=== PATIENT | female | born 1970 | race Caucasian/White ===

== ENCOUNTER 2017-11-04 16:50 | Emergency (ER) | payer MEDICARE, MEDICAID ==
--- NOTE | 2017-11-04 17:29 | EDM.PDOC ---
ED HPI GENERAL MEDICAL PROBLEM - General Chief Complaint: Lower Extremity Injury/Pain Stated Complaint: RT LEG PAIN Time Seen by Provider: 11/04/17 17:05 Source of Information: Reports: Patient, Family History Limitations: Reports: No Limitations - History of Present Illness INITIAL COMMENTS - FREE TEXT/NARRATIVE: clay comes into [facility] ED with reported concerns for swelling in the R lower leg and possible drainage from a surgical wound. She had ortho day surgery last week to remove bone fragments from the R lower leg. She denies visual confirmation of drainage or swelling, as the leg is wrapped in a posterior splint with Robt Wilder type bulky dressing. The ortho nurse suggested an ED visit. - Related Data Allergies Allergy/AdvReac Type Severity Reaction Status Date / Time aspirin Allergy Hives Verified 08/06/13 12:52 codeine Allergy Hives Verified 03/02/13 11:03 ibuprofen Allergy Nausea and Verified 03/02/13 11:03 Vomiting levofloxacin [From Levaquin] Allergy Airway Verified 03/02/13 11:03 Tightness Sulfa (Sulfonamide Allergy Airway Verified 03/02/13 11:03 Antibiotics) Tightness Home Meds: Home Meds Carboxymethylcellulose Sodium [Refresh Tears 0.5% Ophth Soln] 15 ml OP 03/02/13 [History] Cyclobenzaprine [Flexeril] 10 mg PO TID PRN 03/02/13 [History] FLUoxetine [PROzac] 20 mg PO DAILY 03/02/13 [History] Fesoterodine Fumarate [Toviaz] 8 mg PO DAILY 03/02/13 [History] Fluticasone Propionate [Flovent HFA 44 MCG] 44 mcg .XX 03/02/13 [History] Ranitidine [Zantac] 150 mg PO BID PRN 03/02/13 [History] Rizatriptan [Maxalt STAPLE CUTTER] 10 mg PO ASDIRECTED PRN 03/02/13 [History] Simvastatin [Zocor] 20 mg PO BEDTIME 03/02/13 [History] Topiramate [Topamax] 100 mg PO BID 03/02/13 [History] lamoTRIgine [Lamotrigine] 100 mg PO BID 03/02/13 [History] metFORMIN [metFORMIN XR] 500 mg PO BIDM 03/02/13 [History] traMADol HCl [Tramadol HCl] 50 mg PO Q8HR PRN 03/02/13 [History] Potassium Chloride [Klor-Con M20] 20 meq PO BID #20 tab.er 04/10/13 [Rx] Review of Systems - Review of Systems Review Of Systems: ROS reveals no pertinent complaints other than HPI. ED EXAM, GENERAL - Physical Exam Exam: See Below Exam Limited By: No Limitations General Appearance: Alert, WD/WN, No Apparent Distress, Anxious, Obese Head: Normocephalic Neck: Normal Inspection Respiratory/Chest: Lungs Clear Cardiovascular: Regular Rate, Rhythm GI/Abdominal: Normal Bowel Sounds, Non-Tender, No Organomegaly, No Distention, No Mass (Female) Exam: Deferred Rectal (Female) Exam: Deferred Back Exam: Normal Inspection Extremities: Normal Range of Motion, No Pedal Edema, Normal Capillary Refill, Leg Pain (with dressing removed, there is a 5 cm stapled wound along the medial aspect of the calf without signs of drainage, erythema or dehisence; mild calf tenderness, Homans sign neg; ) Neurological: Alert, Oriented, CN II-XII Intact, Normal Cognition, No Motor/ Sensory Deficits Psychiatric: Normal Affect, Anxious Skin Exam: Warm, Dry, Intact, Normal Color, No Rash Lymphatic: No Adenopathy Course - Vital Signs Text/Narrative:: Following inspection of R lower leg, clean dressings were reapplied uneventfully. Departure - Departure Time of Disposition: 17:30 Disposition: Home, Self-Care 01 Condition: Good Clinical Impression: Right leg swelling - Discharge Information *PRESCRIPTION DRUG MONITORING PROGRAM REVIEWED*: Not Applicable *COPY OF PRESCRIPTION DRUG MONITORING REPORT IN PATIENT LOIS: Not Applicable Referrals: Vicki Mirza NP [Primary Care Provider] - - Problem List & Annotations (1) Right leg swelling SNOMED Code(s): 009556035 Code(s): M79.89 - OTHER SPECIFIED SOFT TISSUE DISORDERS Status: Acute Annotation/Comment:: Mild post op swelling of R lower leg, without signs of compromise or thrombosis. The wound is clean. Continue routine out pt managment. - Problem List Review Problem List Initiated/Reviewed/Updated: Yes - Assessment/Plan Plan: Follow up with Ortho on November 14.
[2017-11-04 19:39] VITALS: BP 130/101
== END 2017-11-04 17:45 | disposition home or self-care (01) ==
LOC: FB.ED 16:50
DX: M79.89 Other specified soft tissue disorders (principal); Z88.5 Allergy status to narcotic agent; Z88.6 Allergy status to analgesic agent; Z88.2 Allergy status to sulfonamides; Z79.899 Other long term (current) drug therapy
CPT/HCPCS: 99282

== ENCOUNTER 2018-06-12 18:27 | Emergency (ER) | payer MEDICARE, MEDICAID ==
[2018-06-12] MEDS ORDERED: methylPREDNISolone Sodium Succinate 125 MG/2 ML SDV IM ONE (19:12)
--- NOTE | 2018-06-12 19:18 | EDM.PDOC ---
ED HPI GENERAL MEDICAL PROBLEM - General Chief Complaint: ENT Problem Stated Complaint: L EYE RED AND IRRITATED Time Seen by Provider: 06/12/18 19:00 Source of Information: Reports: Patient History Limitations: Reports: No Limitations - History of Present Illness INITIAL COMMENTS - FREE TEXT/NARRATIVE: c/o itchy and eye discomfort x 2y inc'd pain today, leasing associate out of [place], PCP did not have an apt saw leasing associate 2w ago who rx'ed saline eye drops pt with "many allergies" and "asthma" not allergic to cats, no cats at home, has a dog visit once a month has discomfort and eye d/c, more on L, however, no d/c or swell now has not used other eye drops in past did not identify allergens when asked, says her allergies are worse in winter use neb qAM and a prn HFA, no maintenance HFA left eye Pain Score (Numeric/FACES): 8 - Related Data Allergies Allergy/AdvReac Type Severity Reaction Status Date / Time amoxicillin Allergy Other Verified 06/12/18 18:41 aspirin Allergy Hives Verified 06/12/18 18:41 codeine Allergy Hives Verified 06/12/18 18:41 ibuprofen Allergy Nausea and Verified 06/12/18 18:41 Vomiting levofloxacin [From Levaquin] Allergy Airway Verified 06/12/18 18:41 Tightness Penicillins Allergy Other Verified 06/12/18 18:41 Sulfa (Sulfonamide Allergy Airway Verified 06/12/18 18:41 Antibiotics) Tightness Home Meds: Home Meds Carboxymethylcellulose Sodium [Refresh Tears 0.5% Ophth Soln] 1 drop EYEBOTH BID PRN 03/02/13 [History] Cyclobenzaprine [Flexeril] 10 mg PO TID PRN 03/02/13 [History] Fluticasone Propionate [Flovent HFA 44 MCG] 1 puff INH TID PRN 03/02/13 [History ] Ranitidine [Zantac] 150 mg PO BID PRN 03/02/13 [History] Rizatriptan [Maxalt FAMILY DENTIST] 10 mg PO ASDIRECTED PRN 03/02/13 [History] Simvastatin [Zocor] 20 mg PO BEDTIME 03/02/13 [History] lamoTRIgine [Lamotrigine] 100 mg PO BEDTIME 03/02/13 [History] traMADol HCl [Tramadol HCl] 50 mg PO Q8HR PRN 03/02/13 [History] FLUoxetine HCl [Prozac] 20 mg PO BEDTIME 11/04/17 [History] Ketorolac [Acular LS 0.4% Ophth Soln] 1 drop OP TID #1 bottle 06/12/18 [Rx] Past Medical History Neurological History: Reports: Seizure Psychiatric History: Reports: Bipolar Endocrine/Metabolic History: Reports: Other (See Below) Other Endocrine/Metabolic History: States she is borderline diabetic. - Past Surgical History Musculoskeletal Surgical History: Reports: Other (See Below) Other Musculoskeletal Surgeries/Procedures:: Hx surgery to left foot and right calf. Social & Family History - Family History Family Medical History: Noncontributory - Tobacco Use Smoking Status *Q: Current Every Day Smoker Years of Tobacco use: 7 Packs/Tins Daily: 0.2 - Caffeine Use Caffeine Use: Reports: None - Recreational Drug Use Recreational Drug Use: No ED ROS GENERAL - Review of Systems Review Of Systems: See Below Constitutional: Reports: No Symptoms HEENT: Reports: Eye Discharge, Eye Pain Respiratory: Reports: No Symptoms Cardiovascular: Reports: No Symptoms Endocrine: Reports: No Symptoms GI/Abdominal: Reports: No Symptoms : Reports: No Symptoms Musculoskeletal: Reports: No Symptoms Skin: Reports: No Symptoms Neurological: Reports: No Symptoms Psychiatric: Reports: No Symptoms Hematologic/Lymphatic: Reports: No Symptoms Immunologic: Reports: No Symptoms ED EXAM GENERAL W FULL EYE - Physical Exam Exam: See Below Exam Limited By: No Limitations General Appearance: Alert, WD/WN, No Apparent Distress Eye Exam: Bilateral Eye: Other (skin of face is quite dry, forehead and cheeks are red and dry and mildly hypertrophic c/w with wind/allergies/rubbing, no hyperemia) Conjunctiva & Sclera: Bilateral: Other (very slight hyperemia b/l, no d/c, no swell) Ears: Normal External Exam, Normal Canal, Hearing Grossly Normal, Normal TMs Nose: Normal Inspection, Normal Mucosa, No Blood Throat/Mouth: Normal Inspection, Normal Lips, Normal Teeth, Normal Oropharynx, Normal Voice, No Airway Compromise Head: Atraumatic, Normocephalic Neck: Normal Inspection, Supple, Non-Tender, Full Range of Motion. No: Lymphadenopathy (R), Lymphadenopathy (L) Respiratory/Chest: No Respiratory Distress, Lungs Clear Cardiovascular: Regular Rate, Rhythm Course - Vital Signs Last Recorded V/S: Last Vital Signs Temp 36.4 C 06/12/18 18:27 Pulse 69 06/12/18 18:27 Resp 18 06/12/18 18:27 BP 148/82 H 06/12/18 18:27 Pulse Ox 99 06/12/18 18:27 - Orders/Labs/Meds Orders: Active Orders 24 hr Category Date Time Status methylPREDNISolone Sod Succ [Solu-MEDROL] Med 06/12/18 19:12 Once 125 mg IM ONETIME ONE Medication Orders Methylprednisolone Sodium Succinate (Solu-Medrol) 125 mg IM ONETIME ONE Stop: 06/12/18 19:13 Meds: Medications Generic Name Dose Route Start Last Admin Trade Name Freq PRN Reason Stop Dose Admin Methylprednisolone Sodium Succinate 125 mg 06/12/18 19:12 Solu-Medrol IM 06/12/18 19:13 ONETIME ONE - Re-Assessments/Exams Free Text/Narrative Re-Assessment/Exam: 06/12/18 19:20 not clear that she has a true ocular allergy, clearly has atopic dermatitis which pt admits that she rubs her eyes frequently, eye discomfort likely d/t rubbing, has skin cream but apparently not using Departure - Departure Time of Disposition: 19:12 Disposition: Home, Self-Care 01 Condition: Good Clinical Impression: Allergic conjunctivitis of both eyes - Discharge Information *PRESCRIPTION DRUG MONITORING PROGRAM REVIEWED*: Not Applicable *COPY OF PRESCRIPTION DRUG MONITORING REPORT IN PATIENT LOIS: Not Applicable Prescriptions: Ketorolac [Acular LS 0.4% Ophth Soln] 1 drop OP TID #1 bottle Instructions: Allergic Conjunctivitis, Adult Referrals: Vicki Mirza NP [Primary Care Provider] - Additional Instructions: For eye pain and allergy, use ketorolac 0.4% one drop in each eye 3 times a day for 1 week. Continue your Singular and Zyrtec. See your doctor in 1 week. - My Orders Last 24 Hours: My Active Orders 06/12/18 19:12 methylPREDNISolone Sod Succ [Solu-MEDROL] 125 mg IM ONETIME ONE - Assessment/Plan Last 24 Hours: My Active Orders 06/12/18 19:12 methylPREDNISolone Sod Succ [Solu-MEDROL] 125 mg IM ONETIME ONE
[2018-06-12 19:31] VITALS: BP 136/87
== END 2018-06-12 19:27 | disposition home or self-care (01) ==
LOC: FB.ED 18:27
DX: H10.13 Acute atopic conjunctivitis, bilateral (principal); F17.210 Nicotine dependence, cigarettes, uncomplicated; Z88.1 Allergy status to other antibiotic agents; Z88.6 Allergy status to analgesic agent; Z88.0 Allergy status to penicillin; Z88.2 Allergy status to sulfonamides; Z88.5 Allergy status to narcotic agent
CPT/HCPCS: 96372; 99283; J2930

== ENCOUNTER 2018-07-29 23:42 | Emergency (ER) | payer MEDICARE, MEDICAID ==
[2018-07-30 00:08] VITALS: BP 148/90
--- NOTE | 2018-07-30 00:20 | EDM.PDOC ---
ED HPI GENERAL MEDICAL PROBLEM - General Chief Complaint: Genitourinary Problem Stated Complaint: BLADDER INFECTION Time Seen by Provider: 07/29/18 23:55 Source of Information: Reports: Patient History Limitations: Reports: No Limitations - History of Present Illness INITIAL COMMENTS - FREE TEXT/NARRATIVE: 48-year-old female who reports that she awoke at 6:30 AM with frequency with urination, burning with urination and suprapubic discomfort. She states that the symptoms have worsened through the day. She rates pain as a 10 over 10 when she urinates. She reports it as a burning pain. She's had no nausea or vomiting. She's had no fevers or chills. She's been able to drink liquids well. She has chronic back pain which is unchanged. She has no flank pain. There are no other associated signs or her there are no other modifying factors. Onset: Today (6:30 AM) Duration: Getting Worse Location: Reports: Other (As above) Quality: Reports: Burning, Pressure, Sharp Severity: Moderate Improves with: Reports: None Worsens with: Reports: Other (Urination) Associated Symptoms: Reports: No Other Symptoms Vaginal Pain Score (Numeric/FACES): 10 - Related Data Allergies Allergy/AdvReac Type Severity Reaction Status Date / Time amoxicillin Allergy Other Verified 07/29/18 23:47 aspirin Allergy Hives Verified 07/29/18 23:47 codeine Allergy Hives Verified 07/29/18 23:47 ibuprofen Allergy Nausea and Verified 07/29/18 23:47 Vomiting levofloxacin [From Levaquin] Allergy Airway Verified 07/29/18 23:47 Tightness Penicillins Allergy Other Verified 07/29/18 23:47 Sulfa (Sulfonamide Allergy Airway Verified 07/29/18 23:47 Antibiotics) Tightness Home Meds: Home Meds Carboxymethylcellulose Sodium [Refresh Tears 0.5% Ophth Soln] 1 drop EYEBOTH BID PRN 03/02/13 [History] Cyclobenzaprine [Flexeril] 10 mg PO TID PRN 03/02/13 [History] Fluticasone Propionate [Flovent HFA 44 MCG] 1 puff INH TID PRN 03/02/13 [History ] Ranitidine [Zantac] 150 mg PO BID PRN 03/02/13 [History] Rizatriptan [Maxalt DESIGN TECHNICIAN] 10 mg PO ASDIRECTED PRN 03/02/13 [History] Simvastatin [Zocor] 20 mg PO BEDTIME 03/02/13 [History] lamoTRIgine [Lamotrigine] 100 mg PO BEDTIME 03/02/13 [History] traMADol HCl [Tramadol HCl] 50 mg PO Q8HR PRN 03/02/13 [History] FLUoxetine HCl [Prozac] 20 mg PO BEDTIME 11/04/17 [History] Ketorolac [Acular LS 0.4% Ophth Soln] 1 drop OP TID #1 bottle 06/12/18 [Rx] Fluconazole [Diflucan] 150 mg PO ASDIRECTED #2 tablet 07/30/18 [Rx] Nitrofurantoin Monohyd/M-Cryst [Macrobid 100 mg Capsule] 100 mg PO BID #14 capsule 07/30/18 [Rx] Phenazopyridine HCl [Pyridium] 200 mg PO TID PRN #9 tablet 07/30/18 [Rx] Past Medical History Respiratory History: Reports: Asthma, Bronchitis, Recurrent Gastrointestinal History: Reports: Celiac Disease Neurological History: Reports: Seizure Psychiatric History: Reports: Bipolar Endocrine/Metabolic History: Reports: Other (See Below) Other Endocrine/Metabolic History: States she is borderline diabetic. - Past Surgical History HEENT Surgical History: Reports: Adenoidectomy, Tonsillectomy, Other (See Below) Other HEENT Surgeries/Procedures: Tubes in bilateral ears as child. GI Surgical History: Reports: Appendectomy, Cholecystectomy Musculoskeletal Surgical History: Reports: Other (See Below) Other Musculoskeletal Surgeries/Procedures:: Hx surgery to left foot and right calf. Social & Family History - Family History Family Medical History: Noncontributory - Tobacco Use Smoking Status *Q: Light Tobacco Smoker Years of Tobacco use: 20 Packs/Tins Daily: 0.1 - Caffeine Use Caffeine Use: Reports: Soda, Tea - Recreational Drug Use Recreational Drug Use: No ED ROS GENERAL - Review of Systems Review Of Systems: See Below Constitutional: Reports: No Symptoms HEENT: Reports: No Symptoms Respiratory: Reports: No Symptoms Cardiovascular: Reports: No Symptoms Endocrine: Reports: No Symptoms GI/Abdominal: Reports: No Symptoms : Reports: Dysuria, Irregular Menses (no menses x 3 months), Pain, Urgency Musculoskeletal: Reports: No Symptoms Skin: Reports: No Symptoms Neurological: Reports: No Symptoms Hematologic/Lymphatic: Reports: No Symptoms Immunologic: Reports: No Symptoms ED EXAM, RENAL/ - Physical Exam Exam: See Below Exam Limited By: No Limitations General Appearance: Alert, WD/WN, No Apparent Distress Eye Exam: Bilateral Eye: EOMI, Normal Inspection, PERRL Ears: Normal External Exam, Hearing Grossly Normal Nose: Normal Inspection, Normal Mucosa Throat/Mouth: Normal Voice, No Airway Compromise. No: Perioral Cyanosis Head: Atraumatic, Normocephalic Neck: Normal Inspection Respiratory/Chest: No Respiratory Distress, Lungs Clear, Normal Breath Sounds, No Accessory Muscle Use, Chest Non-Tender Cardiovascular: Normal Peripheral Pulses, Regular Rate, Rhythm, No Edema GI/Abdominal: Normal Bowel Sounds, Soft, Non-Tender Back Exam: Normal Inspection, Full Range of Motion. No: Decreased Range of Motion Extremities: Normal Inspection, Normal Range of Motion Neurological: Alert, Oriented, CN II-XII Intact, No Motor/Sensory Deficits Skin Exam: Warm, Dry, Intact, Normal Color Lymphatic: No Adenopathy Course - Vital Signs Last Recorded V/S: Last Vital Signs Temp 36.5 C 07/29/18 23:46 Pulse 87 07/29/18 23:46 Resp 18 07/29/18 23:46 BP 148/90 H 07/29/18 23:46 Pulse Ox 93 L 07/29/18 23:46 - Orders/Labs/Meds Orders: Active Orders 24 hr Category Date Time Status CULTURE URINE [RM] Stat Lab 07/30/18 00:04 Received Labs: Laboratory Tests 07/30/18 07/30/18 Range/Units 00:04 00:04 Urine Color Yellow (YELLOW) Urine Appearance Cloudy (CLEAR) Urine pH 5.0 (5.0-6.5) Ur Specific [place] 1.010 (1.010-1.025) Urine Protein 30 H (NEGATIVE) mg/dL Urine Glucose (UA) Normal (NORMAL) mg/dL Urine Ketones Negative (NEGATIVE) mg/dL Urine Occult Blood Moderate H (NEGATIVE) Urine Nitrite Negative (NEGATIVE) Urine Bilirubin Negative (NEGATIVE) Urine Urobilinogen Normal (NEGATIVE) mg/dL Ur Leukocyte Esterase Large H (NEGATIVE) Urine RBC 5-10 H (0-5) Urine WBC 75-100 H (0-5) Ur Squamous Epith Cells Few H (NS,R,O) Urine Bacteria Moderate H (NS) Urine HCG, Qual Negative (NEGATIVE) Meds: Medications Discontinued Medications Generic Name Dose Route Start Last Admin Trade Name Mónica PRN Reason Stop Dose Admin Nitrofurantoin Macrocrystals 100 mg 07/30/18 00:29 07/30/18 00:37 Macrobid PO 07/30/18 00:30 100 mg ONETIME ONE Administration Phenazopyridine HCl 95 mg 07/30/18 09:00 Urinary Pain Relief PO TIDPC VICENTE Phenazopyridine HCl 95 mg 07/30/18 00:39 07/30/18 00:41 Urinary Pain Relief PO 07/30/18 00:40 95 mg STAT ONE Administration Departure - Departure Time of Disposition: 00:30 Disposition: Home, Self-Care 01 Clinical Impression: UTI (urinary tract infection) Qualifiers: Urinary tract infection type: acute cystitis Hematuria presence: with hematuria Qualified Code(s): N30.01 - Acute cystitis with hematuria - Discharge Information Prescriptions: Fluconazole [Diflucan] 150 mg PO ASDIRECTED #2 tablet Nitrofurantoin Monohyd/M-Cryst [Macrobid 100 mg Capsule] 100 mg PO BID #14 capsule Phenazopyridine HCl [Pyridium] 200 mg PO TID PRN #9 tablet PRN Reason: Urinary discomfort and burning Instructions: Urinary Tract Infection, Adult Referrals: Vicki Mirza NP [Primary Care Provider] - Forms: ED Department Discharge Additional Instructions: You appear to have a urinary tract infection. He should drink plenty of fluids. Medication is prescribed (Macrobid 100 mg, Pyridium 200 mg, Diflucan 150 mg). The Diflucan is to treat for a potential infection. Back to the emergency department for unrelenting vomiting, high fever or any other concerning signs or symptoms. - My Orders Last 24 Hours: My Active Orders 07/30/18 00:04 CULTURE URINE [RM] Stat - Assessment/Plan Last 24 Hours: My Active Orders 07/30/18 00:04 CULTURE URINE [RM] Stat
[2018-07-30] MEDS: Nitrofurantoin Monohydrate/Macrocrystalline 100 MG Cap PO ONE (00:37)
[2018-07-30] MEDS: Phenazopyridine 95 MG Tab PO ONE (00:41)
[2018-07-30] MEDS ORDERED: Phenazopyridine 95 MG Tab PO SCH (09:00)
== END 2018-07-30 00:54 | disposition home or self-care (01) ==
LOC: FB.ED 23:42
DX: N30.01 Acute cystitis with hematuria (principal); F17.210 Nicotine dependence, cigarettes, uncomplicated; Z79.899 Other long term (current) drug therapy
CPT/HCPCS: 81001; 81025; 87086; 87088; 87147; 87186; 99283; A9270

== ENCOUNTER 2018-09-23 21:58 | Emergency (ER) | payer MEDICARE, MEDICAID ==
[2018-09-23] MEDS ORDERED: Ondansetron 4 MG Tab.DIS PO ONE (23:06)
--- NOTE | 2018-09-23 23:26 | EDM.PDOC ---
ED HPI GENERAL MEDICAL PROBLEM - General Chief Complaint: Abdominal Pain Stated Complaint: stomach pain Time Seen by Provider: 09/23/18 23:00 Source of Information: Reports: Patient, Old Records History Limitations: Reports: No Limitations - History of Present Illness INITIAL COMMENTS - FREE TEXT/NARRATIVE: patient presents with pain and bloating in stomach, has been going on for about 2 days. She reports she is "throwing up everything" except sprite. No blood in vomit. Having diarrhea also, states it is charcoal colored, same timeframe. Took tylenol 3 hours ago to try and help pain and it didn't. Feels like her abdomen is expanding. Denies urinary symptoms. No fever, but "always hot". Symptoms much worse at work last night. No back or flank pain. Not short of breath, but hard to take in a deep breath due to pain in her abdomen. No cough, palpitations, chest pain. No recent URI. Just started in new relationship, doesn't think she is but reported her "tubes came untied 2 years ago". Very irregular cycles, doesn't remember the last one. Type II diabetic, states she is not on any medications Reports history of celiacs disease. History gallbladder and appendix removed laparoscopically in Jan 2017. Occasional smoker, no alcohol or drug use. 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 States she has just finished a 58hr straight shift with no sleep. - Related Data Allergies Allergy/AdvReac Type Severity Reaction Status Date / Time amoxicillin Allergy Other Verified 09/23/18 23:17 aspirin Allergy Hives Verified 09/23/18 23:17 codeine Allergy Hives Verified 09/23/18 23:17 ibuprofen Allergy Nausea and Verified 09/23/18 23:17 Vomiting levofloxacin [From Levaquin] Allergy Airway Verified 09/23/18 23:17 Tightness Penicillins Allergy Other Verified 09/23/18 23:17 Sulfa (Sulfonamide Allergy Airway Verified 09/23/18 23:17 Antibiotics) Tightness Home Meds: Home Meds Carboxymethylcellulose Sodium [Refresh Tears 0.5% Ophth Soln] 1 drop EYEBOTH BID PRN 03/02/13 [History] Cyclobenzaprine [Flexeril] 10 mg PO TID PRN 03/02/13 [History] Fluticasone Propionate [Flovent HFA 44 MCG] 1 puff INH TID PRN 03/02/13 [History ] Ranitidine [Zantac] 150 mg PO BID PRN 03/02/13 [History] Rizatriptan [Maxalt DIRECTOR OF EMPLOYER SERVICES] 10 mg PO ASDIRECTED PRN 03/02/13 [History] Simvastatin [Zocor] 20 mg PO BEDTIME 03/02/13 [History] lamoTRIgine [Lamotrigine] 100 mg PO BEDTIME 03/02/13 [History] traMADol HCl [Tramadol HCl] 50 mg PO Q8HR PRN 03/02/13 [History] FLUoxetine HCl [Prozac] 20 mg PO BEDTIME 11/04/17 [History] Phenazopyridine HCl [Pyridium] 200 mg PO TID PRN #9 tablet 07/30/18 [Rx] Past Medical History HEENT History: Reports: Impaired Vision Respiratory History: Reports: Asthma, Bronchitis, Recurrent Gastrointestinal History: Reports: 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 - Past Surgical History HEENT Surgical History: Reports: Adenoidectomy, Tonsillectomy, Other (See Below) Other HEENT Surgeries/Procedures: Tubes in bilateral ears as child. GI Surgical History: Reports: Appendectomy, Cholecystectomy Musculoskeletal Surgical History: Reports: Other (See Below) Other Musculoskeletal Surgeries/Procedures:: Hx surgery to left foot and right calf. extensive hardware. 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 Quite stressful she states. 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 ED ROS GENERAL - Review of Systems Review Of Systems: ROS reveals no pertinent complaints other than HPI. ED EXAM, GENERAL - Physical Exam Exam: See Below Free Text/Narrative:: General: alert, no apparent distress although complains extensively of severe pain in abdomen throat without erythema, mucus membranes moist, no tonsillar enlargement or exudate No cervical or supraclavicular lymphadenopathy Lungs clear throughout with no wheezes or crackles and good air movement in all blas. Speaking in full sentences in no respiratory distress Heart: Regular rate and rhythm Abdomen: Bowel sounds in all 4 quadrants and no tenderness with auscultation except over the suprapubic area she is diffusely tender to palpation with even light touch, but does not have any rebound or guarding. Again over the suprapubic area she is the most tender Back: No costovertebral angle tenderness No joint swelling noted, no obvious skin rashes or lesions. Peripheral pulses + 2 in both the upper and lower extremities, gait is normal, strength equal side to side. Course - Vital Signs Text/Narrative:: initial evaluation completed. There seems to be some discrepancy between the patient's reported severity of symptoms and findings on exam. She does have consistent tenderness over suprapubic area; see exam. Will get labs, check urine. Vitals stable and I do not see need for IV at this time. FELTON mcwilliams ordered. reportedly has celiacs and is working with a surgeon dr. Briseno in [place] to plan for some kind of surgery to remove fluid from her belly? records not available. sexually active with new partner Differential based on her report - viral gastroenteritis, celiac flare, PID could also present this way, UTI/cystitis. Unlikely to be bowel obstruction with diarrhea and drinking pop. She does not appear acutely uncomfortable. - Orders/Labs/Meds Labs: Laboratory Tests 09/23/18 09/23/18 09/23/18 Range/Units 23:10 23:10 23:10 WBC 8.3 (4.5-12.0) X10-3/uL RBC 4.83 (3.23-5.20) x10(6)uL Hgb 14.8 (11.5-15.5) g/dL Hct 42.7 (30.0-51.3) % MCV 88.3 (80-96) fL MCH 30.6 (27.7-33.6) pg MCHC 34.6 (32.2-35.4) g/dL RDW 12.3 (11.5-15.5) % Plt Count 251 (125-369) X10(3)uL MPV 8.6 (7.4-10.4) fL Neut % (Auto) 57.0 (46-82) % Lymph % (Auto) 34.0 (13-37) % [place] % (Auto) 6.9 (4-12) % Eos % (Auto) 2 (1.0-5.0) % Baso % (Auto) 1 (0-2) % Neut # (Auto) 4.8 (1.6-8.3) # Lymph # (Auto) 2.8 (0.6-5.0) # Coffey # (Auto) 0.6 (0.0-1.3) # Eos # (Auto) 0.1 (0.0-0.8) # Baso # (Auto) 0.0 (0.0-0.2) # Sodium 140 (135-145) mmol/L Potassium 3.2 L (3.5-5.3) mmol/L Chloride 102 (100-110) mmol/L Carbon Dioxide 26 (21-32) mmol/L BUN 5 L (7-18) mg/dL Creatinine 0.9 (0.55-1.02) mg/dL Est Cr Clr Drug Dosing TNP Estimated GFR (MDRD) > 60 (>60) BUN/Creatinine Ratio 5.6 L (9-20) Glucose 114 (80-116) mg/dL Calcium 8.3 L (8.6-10.2) mg/dL Total Bilirubin 0.3 (0.1-1.3) mg/dL AST 20 (5-25) IU/L ALT 34 (12-36) U/L Alkaline Phosphatase 144 H (56-112) IU/L C-Reactive Protein 1.4 H (0.5-0.9) mg/dL Total Protein 7.2 (6.0-8.0) g/dL Albumin 3.4 L (3.5-5.2) g/dL Globulin 3.8 g/dL Albumin/Globulin Ratio 0.9 Urine Color (YELLOW) Urine Appearance (CLEAR) Urine pH (5.0-6.5) Ur Specific [place] (1.010-1.025) Urine Protein (NEGATIVE) mg/dL Urine Glucose (UA) (NORMAL) mg/dL Urine Ketones (NEGATIVE) mg/dL Urine Occult Blood (NEGATIVE) Urine Nitrite (NEGATIVE) Urine Bilirubin (NEGATIVE) Urine Urobilinogen (NEGATIVE) mg/dL Ur Leukocyte Esterase (NEGATIVE) Urine RBC (0-5) Urine WBC (0-5) Ur Squamous Epith Cells (NS,R,O) Urine Bacteria (NS) Urine HCG, Qual (NEGATIVE) 09/23/18 09/23/18 Range/Units 23:15 23:15 WBC (4.5-12.0) X10-3/uL RBC (3.23-5.20) x10(6)uL Hgb (11.5-15.5) g/dL Hct (30.0-51.3) % MCV (80-96) fL MCH (27.7-33.6) pg MCHC (32.2-35.4) g/dL RDW (11.5-15.5) % Plt Count (125-369) X10(3)uL MPV (7.4-10.4) fL Neut % (Auto) (46-82) % Lymph % (Auto) (13-37) % [place] % (Auto) (4-12) % Eos % (Auto) (1.0-5.0) % Baso % (Auto) (0-2) % Neut # (Auto) (1.6-8.3) # Lymph # (Auto) (0.6-5.0) # Coffey # (Auto) (0.0-1.3) # Eos # (Auto) (0.0-0.8) # Baso # (Auto) (0.0-0.2) # Sodium (135-145) mmol/L Potassium (3.5-5.3) mmol/L Chloride (100-110) mmol/L Carbon Dioxide (21-32) mmol/L BUN (7-18) mg/dL Creatinine (0.55-1.02) mg/dL Est Cr Clr Drug Dosing Estimated GFR (MDRD) (>60) BUN/Creatinine Ratio (9-20) Glucose (80-116) mg/dL Calcium (8.6-10.2) mg/dL Total Bilirubin (0.1-1.3) mg/dL AST (5-25) IU/L ALT (12-36) U/L Alkaline Phosphatase (56-112) IU/L C-Reactive Protein (0.5-0.9) mg/dL Total Protein (6.0-8.0) g/dL Albumin (3.5-5.2) g/dL Globulin g/dL Albumin/Globulin Ratio Urine Color Yellow (YELLOW) Urine Appearance Clear (CLEAR) Urine pH 6.0 (5.0-6.5) Ur Specific [place] 1.005 L (1.010-1.025) Urine Protein Negative (NEGATIVE) mg/dL Urine Glucose (UA) Normal (NORMAL) mg/dL Urine Ketones Negative (NEGATIVE) mg/dL Urine Occult Blood Negative (NEGATIVE) Urine Nitrite Negative (NEGATIVE) Urine Bilirubin Negative (NEGATIVE) Urine Urobilinogen Normal (NEGATIVE) mg/dL Ur Leukocyte Esterase Negative (NEGATIVE) Urine RBC 0-5 (0-5) Urine WBC 0-5 (0-5) Ur Squamous Epith Cells Few H (NS,R,O) Urine Bacteria Few H (NS) Urine HCG, Qual Negative (NEGATIVE) Meds: Medications Discontinued Medications Generic Name Dose Route Start Last Admin Trade Name Freq PRN Reason Stop Dose Admin Ondansetron HCl 4 mg 09/23/18 23:06 09/23/18 23:21 Zofran Odt PO 09/23/18 23:07 4 mg ONETIME ONE Administration - Re-Assessments/Exams Free Text/Narrative Re-Assessment/Exam: 09/23/18 23:42 discussed possibility of pelvic exam with patient given lower abdominal tenderness. She reports she was just checked for STDs and so was her partner. he lives in another town so the last time they had sex was 2 months ago. Based on this information, I agreed we could defer exam. Initial labs - UA clean, BMP shows slightly low potassium, low albumin, BUN and creatinine normal so she does not appear dehydrated. CRP 1.4 - not suprising to be mildly elevated given history of celiacs. CBC shows normal WBC, no anemia, normal platelets. Urine test negative Free Text/Narrative Re-Assessment/Exam: 09/24/18 00:03 discussed results with patient. Given normal labs and vitals, recommended discharge home so she can rest and have good control over diet like she needs too. Discussed signs or symptoms that would prompt need for further evaluation and all questions answered, she is in agreement with this plan. Departure - Departure Time of Disposition: 00:01 Disposition: Home, Self-Care 01 Condition: Good Clinical Impression: Abdominal pain, Celiac disease - Discharge Information *PRESCRIPTION DRUG MONITORING PROGRAM REVIEWED*: Yes *COPY OF PRESCRIPTION DRUG MONITORING REPORT IN PATIENT LOIS: No Instructions: Abdominal Pain, Adult, [id number] Referrals: Vicki Mirza ANGER CONTROL COUNSELOR [Primary Care Provider] - Forms: ED Department Discharge Additional Instructions: recommend rest, diet as you know how recommend potassium supplement for 2 weeks or so to help replenish body stores. testing - normal wbc, slightly elevated CRP, and normal platelets - consistent with something like celiacs but also indicate there is no other infectious or systemic (whole body) inflammation, it is likely confined to your GI tract urine normal - well hydrated - and negative test kidney function also normal. good job staying hydrated may need to set some boundaries with how many hours you work followup with as planned
[2018-09-24 00:07] VITALS: BP 137/83
== END 2018-09-24 00:12 | disposition home or self-care (01) ==
LOC: FB.ED 21:58
DX: K90.0 Celiac disease (principal); J45.909 Unspecified asthma, uncomplicated; E11.9 Type 2 diabetes mellitus without complications; F17.200 Nicotine dependence, unspecified, uncomplicated; Z88.1 Allergy status to other antibiotic agents; Z88.5 Allergy status to narcotic agent; Z88.2 Allergy status to sulfonamides; Z79.899 Other long term (current) drug therapy
CPT/HCPCS: 36415; 80053; 81001; 81025; 85025; 86140; 99284; A9270

== ENCOUNTER 2020-01-11 13:52 | Emergency (ER) | payer MEDICARE, MEDICAID ==
[2020-01-11 14:22] VITALS: BP 140/79; PULSE 67
--- NOTE | 2020-01-11 14:46 | EDM.PDOC ---
ED HPI GENERAL MEDICAL PROBLEM - General Chief Complaint: Genitourinary Problem Stated Complaint: BLOOD IN URINE Time Seen by Provider: 01/11/20 14:15 Source of Information: Reports: Patient History Limitations: Reports: No Limitations - History of Present Illness INITIAL COMMENTS - FREE TEXT/NARRATIVE: pt c/o burning and urgency with urination X 2 days , no fever or chills or any other associated sx or concerns. URINARY Pain Score (Numeric/FACES): 7 - Related Data Allergies Allergy/AdvReac Type Severity Reaction Status Date / Time amoxicillin Allergy Other Verified 01/11/20 14:02 aspirin Allergy Hives Verified 01/11/20 14:02 codeine Allergy Hives Verified 01/11/20 14:02 ibuprofen Allergy Nausea and Verified 01/11/20 14:02 Vomiting levofloxacin [From Levaquin] Allergy Airway Verified 01/11/20 14:02 Tightness Penicillins Allergy Other Verified 01/11/20 14:02 Sulfa (Sulfonamide Allergy Airway Verified 01/11/20 14:02 Antibiotics) Tightness Home Meds: Home Meds Carboxymethylcellulose Sodium [Refresh Tears 0.5% Ophth Soln] 1 drop EYEBOTH BID PRN 03/02/13 [History] Cyclobenzaprine [Flexeril] 10 mg PO TID PRN 03/02/13 [History] Fluticasone Propionate [Flovent HFA 44 MCG] 1 puff INH TID PRN 03/02/13 [History] Rizatriptan [Maxalt RESAWYER] 10 mg PO ASDIRECTED PRN 03/02/13 [History] lamoTRIgine [Lamotrigine] 100 mg PO BEDTIME 03/02/13 [History] traMADol HCl [Tramadol HCl] 50 mg PO Q8HR PRN 03/02/13 [History] FLUoxetine HCl [Prozac] 20 mg PO BEDTIME 11/04/17 [History] ARIPiprazole [Abilify] 2 mg PO DAILY 01/11/20 [History] Celecoxib [CeleBREX] 200 mg PO DAILY 01/11/20 [History] Levocetirizine Dihydrochloride [Xyzal] 5 mg PO BEDTIME 01/11/20 [History] Meloxicam [Mobic] 15 mg PO BEDTIME 01/11/20 [History] Omeprazole 40 mg PO DAILY 01/11/20 [History] tiZANidine [Zanaflex] 2 mg PO BEDTIME 01/11/20 [History] Past Medical History HEENT History: Reports: Impaired Vision Respiratory History: Reports: Asthma, Bronchitis, Recurrent Gastrointestinal History: Reports: Celiac Disease 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 - Past Surgical History HEENT Surgical History: Reports: Adenoidectomy, Tonsillectomy, Other (See Below) Other HEENT Surgeries/Procedures: Tubes in bilateral ears as child. GI Surgical History: Reports: Appendectomy, Cholecystectomy Musculoskeletal Surgical History: Reports: Other (See Below) Other Musculoskeletal Surgeries/Procedures:: Hx surgery to left foot and right calf. extensive hardware. also has abhilash in back from when she was a child Social & Family History - Family History Family Medical History: Noncontributory Cardiac: Reports: CAD, Hypertension Endocrine/Metabolic: Reports: Diabetes, type II Oncologic: Reports: Other (See Below) - Tobacco Use Smoking Status *Q: Current Every Day Smoker Years of Tobacco use: 2 Packs/Tins Daily: 0.2 - Caffeine Use Caffeine Use: Reports: Coffee - Recreational Drug Use Recreational Drug Use: No - Sexual History Other Sexual History Comment: recently with new partner - Living Situation & Occupation Living situation: Reports: Occupation: Employed ED ROS GENERAL - Review of Systems Review Of Systems: See Below Constitutional: Reports: No Symptoms HEENT: Reports: No Symptoms Respiratory: Reports: No Symptoms Cardiovascular: Reports: No Symptoms GI/Abdominal: Reports: No Symptoms : Reports: Dysuria, Frequency. Denies: Flank Pain Musculoskeletal: Reports: No Symptoms Skin: Reports: No Symptoms Neurological: Reports: No Symptoms ED EXAM, GENERAL - Physical Exam Exam: See Below Exam Limited By: No Limitations Respiratory/Chest: No Respiratory Distress, Lungs Clear Cardiovascular: Normal Peripheral Pulses, Regular Rate, Rhythm GI/Abdominal: Normal Bowel Sounds, Soft, Non-Tender Back Exam: Normal Inspection. No: CVA Tenderness (R), CVA Tenderness (L) Neurological: Alert, Oriented, CN II-XII Intact Skin Exam: Warm Course - Vital Signs Text/Narrative:: pt has UTI, Macrobid was prescribed , pt to maintain good hydration and follow on this issue with PCP if needed . urine with be sent for culture. Last Recorded V/S: Last Vital Signs Temp 36.8 C 01/11/20 13:58 Pulse 67 01/11/20 13:58 Resp 16 01/11/20 13:58 BP 140/79 01/11/20 13:58 Pulse Ox 99 01/11/20 13:58 - Orders/Labs/Meds Orders: Active Orders 24 hr Category Date Time Status CULTURE URINE [RM] Stat Lab 01/11/20 14:15 Received Labs: Laboratory Tests 01/11/20 Range/Units 14:15 Urine Color Yellow (YELLOW) Urine Appearance Cloudy (CLEAR) Urine pH 5.0 (5.0-6.5) Ur Specific [place] 1.015 (1.010-1.025) Urine Protein Negative (NEGATIVE) mg/dL Urine Glucose (UA) Normal (NORMAL) mg/dL Urine Ketones Negative (NEGATIVE) mg/dL Urine Occult Blood Large H (NEGATIVE) Urine Nitrite Negative (NEGATIVE) Urine Bilirubin Negative (NEGATIVE) Urine Urobilinogen Normal (NEGATIVE) mg/dL Ur Leukocyte Esterase Large H (NEGATIVE) Urine RBC >100 H (0-5) Urine WBC >100 H (0-5) Ur Squamous Epith Cells Moderate H (NS,R,O) Urine Bacteria Moderate H (NS) Departure - Departure Time of Disposition: 14:46 Disposition: Home, Self-Care 01 Clinical Impression: UTI (urinary tract infection) Qualifiers: Urinary tract infection type: acute cystitis Hematuria presence: with hematuria Qualified Code(s): N30.01 - Acute cystitis with hematuria - Discharge Information Referrals: Vicki Mirza NP [Primary Care Provider] - Sepsis Event Note (ED) - Evaluation Sepsis Screening Result: No Definite Risk - Focused Exam Vital Signs: Vital Signs Temp Pulse Resp BP Pulse Ox 01/11/20 13:58 36.8 C 67 16 140/79 99 - My Orders Last 24 Hours: My Active Orders 01/11/20 14:15 CULTURE URINE [RM] Stat - Assessment/Plan Last 24 Hours: My Active Orders 01/11/20 14:15 CULTURE URINE [RM] Stat
== END 2020-01-11 14:50 | disposition home or self-care (01) ==
LOC: FB.ED 13:52
DX: N30.01 Acute cystitis with hematuria (principal); J45.909 Unspecified asthma, uncomplicated; R56.9 Unspecified convulsions; F31.9 Bipolar disorder, unspecified; E11.9 Type 2 diabetes mellitus without complications; F17.210 Nicotine dependence, cigarettes, uncomplicated; Z88.1 Allergy status to other antibiotic agents; Z88.5 Allergy status to narcotic agent; Z88.6 Allergy status to analgesic agent; Z88.0 Allergy status to penicillin; Z88.2 Allergy status to sulfonamides; Z79.899 Other long term (current) drug therapy
CPT/HCPCS: 81001; 87086; 99283

== ENCOUNTER 2020-01-25 21:21 | Emergency (ER) | payer MEDICARE, MEDICAID ==
--- NOTE | 2020-01-25 21:47 | EDM.PDOC ---
ED HPI GENERAL MEDICAL PROBLEM - General Stated Complaint: FALL-HAND INJURY Time Seen by Provider: 01/25/20 21:45 Source of Information: Reports: Patient History Limitations: Reports: No Limitations - History of Present Illness INITIAL COMMENTS - FREE TEXT/NARRATIVE: 49-year-old female who reports that at approximately 2:58 PM today she was walking with her on a sidewalk and her left knee "gave way" and she fell catching herself and hitting her right hand against the edge of the sidewalk. She had immediate pain in the area and has since had continued pain in the area that she rates as a 10/10. It is a sharp and throbbing type pain that is worse with palpation and movement. She reports that it hurts all over her hand and her fingers. It seems to radiate up into her ulnar forearm as well. She did not hit her head. There was no loss of consciousness. She has no neck or back pain. There is an abrasion on her right palm. She did land on her left knee but she reports no pain in this area. She does report that she finished her Macrobid a few days ago and she still has some feelings of burning and her. He'll area but she also reports itching and has noticed some erythema down there. She has been applying "yeast cream" and her symptoms have not been resolving. She has had no fevers or chills. No abdominal pain. She has been eating and drinking normally. There are no other associated signs or symptoms. There are no other modifying factors. 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 Vaginal yeast cream for the burning with urination and perineal irritation) Right Hand Pain Score (Numeric/FACES): 10 - Related Data Allergies Allergy/AdvReac Type Severity Reaction Status Date / Time amoxicillin Allergy Other Verified 01/11/20 14:02 aspirin Allergy Hives Verified 01/11/20 14:02 codeine Allergy Hives Verified 01/11/20 14:02 ibuprofen Allergy Nausea and Verified 01/11/20 14:02 Vomiting levofloxacin [From Levaquin] Allergy Airway Verified 01/11/20 14:02 Tightness Penicillins Allergy Other Verified 01/11/20 14:02 Sulfa (Sulfonamide Allergy Airway Verified 01/11/20 14:02 Antibiotics) Tightness Home Meds: Home Meds Carboxymethylcellulose Sodium [Refresh Tears 0.5% Ophth Soln] 1 drop EYEBOTH BID PRN 03/02/13 [History] Cyclobenzaprine [Flexeril] 10 mg PO TID PRN 03/02/13 [History] Fluticasone Propionate [Flovent HFA 44 MCG] 1 puff INH TID PRN 03/02/13 [History] Rizatriptan [Maxalt STERILE PROCESSING TECHNICIAN] 10 mg PO ASDIRECTED PRN 03/02/13 [History] lamoTRIgine [Lamotrigine] 100 mg PO BEDTIME 03/02/13 [History] traMADol HCl [Tramadol HCl] 50 mg PO Q8HR PRN 03/02/13 [History] FLUoxetine HCl [Prozac] 20 mg PO BEDTIME 11/04/17 [History] ARIPiprazole [Abilify] 2 mg PO DAILY 01/11/20 [History] Celecoxib [CeleBREX] 200 mg PO DAILY 01/11/20 [History] Levocetirizine Dihydrochloride [Xyzal] 5 mg PO BEDTIME 01/11/20 [History] Meloxicam [Mobic] 15 mg PO BEDTIME 01/11/20 [History] Nitrofurantoin Monohyd/M-Cryst [Macrobid 100 mg Capsule] 100 mg PO BID #20 capsule 01/11/20 [Rx] Omeprazole 40 mg PO DAILY 01/11/20 [History] tiZANidine [Zanaflex] 2 mg PO BEDTIME 01/11/20 [History] Fluconazole [Diflucan] 150 mg PO ASDIRECTED #2 tab 01/25/20 [Rx] Past Medical History HEENT History: Reports: Impaired Vision Respiratory History: Reports: Asthma, Bronchitis, Recurrent Gastrointestinal History: Reports: Celiac Disease Neurological History: Reports: Seizure Psychiatric History: Reports: Bipolar Endocrine/Metabolic History: Reports: Diabetes, Type II - Past Surgical History HEENT Surgical History: Reports: Adenoidectomy, Myringotomy w Tube(s), Tonsillectomy GI Surgical History: Reports: Appendectomy, Cholecystectomy Musculoskeletal Surgical History: Reports: Arthroscopic Knee (Right knee), ORIF (Bilateral ankles), Other (See Below) Other Musculoskeletal Surgeries/Procedures:: Hx surgery to left foot and right calf. extensive hardware. also has abhilash in back from when she was a child Social & Family History - Family History Cardiac: Reports: CAD, Hypertension Endocrine/Metabolic: Reports: Diabetes, type II Oncologic: Reports: Other (See Below) - Tobacco Use Smoking Status *Q: Current Every Day Smoker - Caffeine Use Caffeine Use: Reports: Coffee - Alcohol Use Alcohol Use History: No - Sexual History Other Sexual History Comment: recently with new partner - Living Situation & Occupation Living situation: Reports: Occupation: Employed Review of Systems - Review of Systems Review Of Systems: See Below Constitutional: Reports: No Symptoms Eyes: Reports: No Symptoms Ears: Reports: No Symptoms Nose: Reports: No Symptoms Mouth/Throat: Reports: No Symptoms Respiratory: Reports: No Symptoms Cardiovascular: Reports: No Symptoms GI/Abdominal: Reports: No Symptoms Genitourinary: Reports: Dysuria, Other (Burning and itching and. Nail area) Musculoskeletal: Reports: Hand Pain (Right hand pain and swelling.), Other (Radial pulses are strong and full in both upper extremities.) Skin: Reports: Bruising (Right hand) Neurological: Reports: No Symptoms ED EXAM, GENERAL - Physical Exam Exam: See Below Exam Limited By: No Limitations General Appearance: Alert, Mild Distress (Ears and some pain.), Obese Eye Exam: Bilateral Eye: EOMI, Normal Inspection Ears: Normal External Exam, Hearing Grossly Normal Ear Exam: Bilateral Ear: Auricle Normal Nose: Normal Inspection, Normal Mucosa, No Blood Throat/Mouth: Normal Inspection, Normal Oropharynx, Normal Voice, No Airway Compromise Head: Atraumatic, Normocephalic Neck: Normal Inspection, Supple, Non-Tender, Full Range of Motion Respiratory/Chest: No Respiratory Distress, Lungs Clear, Normal Breath Sounds, No Accessory Muscle Use, Chest Non-Tender Cardiovascular: Normal Peripheral Pulses, Regular Rate, Rhythm, No Murmur Peripheral Pulses: 2+: Radial (L), Radial (R) GI/Abdominal: Normal Bowel Sounds, Soft, Non-Tender, No Mass Back Exam: Normal Inspection, Full Range of Motion Extremities: No Pedal Edema, Normal Capillary Refill, Other (Diffuse tenderness and swelling with some ecchymosis of the entire right hand. No crepitus or bony deformity noted.) Neurological: Alert, Oriented, CN II-XII Intact, Normal Cognition, No Motor/Sensory Deficits Skin Exam: Warm, Dry, Normal Color, Ecchymosis (And swelling of the entire right hand.), Wound/Incision (Abrasion on right palm.) Course - Vital Signs Last Recorded V/S: Last Vital Signs Temp 36.6 C 01/25/20 21:59 Pulse 67 01/25/20 21:59 Resp 18 01/25/20 21:59 BP 165/93 H 01/25/20 21:59 Pulse Ox 95 01/25/20 21:59 - Orders/Labs/Meds Orders: Active Orders 24 hr Category Date Time Status Hand Comp Min 3V Rt [CR] Stat Exams 01/25/20 21:46 Taken CULTURE URINE [RM] Stat Lab 01/25/20 22:40 Received Labs: Laboratory Tests 01/25/20 01/25/20 Range/Units 22:40 22:40 Urine Color Yellow (YELLOW) Urine Appearance Clear (CLEAR) Urine pH 6.0 (5.0-6.5) Ur Specific [place] 1.020 (1.010-1.025) Urine Protein Negative (NEGATIVE) mg/dL Urine Glucose (UA) Normal (NORMAL) mg/dL Urine Ketones Negative (NEGATIVE) mg/dL Urine Occult Blood Negative (NEGATIVE) Urine Nitrite Negative (NEGATIVE) Urine Bilirubin Negative (NEGATIVE) Urine Urobilinogen Normal (NEGATIVE) mg/dL Ur Leukocyte Esterase Negative (NEGATIVE) Urine RBC 0-5 (0-5) Urine WBC 0-5 (0-5) Ur Squamous Epith Cells Few H (NS,R,O) Urine Bacteria Few H (NS) Urine Mucus Few H (NS) Urine HCG, Qual Negative (NEGATIVE) - Radiology Interpretation Free Text/Narrative:: X-ray of right hand shows no definite fracture. - Re-Assessments/Exams Free Text/Narrative Re-Assessment/Exam: 01/25/20 23:05: X-ray of the right hand does not show any definite fracture. She does have some osteopenia on exam she has bruising throughout the entire hand. Patient would like to try a wrist and hand brace and we will place her in one to see if this is helping with her discomfort. The patient's urine does not show any definite infection. I will send the urine for culture. She does have a slight discharge, redness and some itching in her and this could represent a vaginal yeast infection. I will send a prescription for Diflucan to treat for this possibility. I did send the urine for culture. The urine culture from 01/11/2020 showed mixed bryan and appeared to be a contaminated specimen. She should follow-up with her primary provider if she is having persisting symptoms and if the pain is not getting progressively better with time in her right hand, she should follow-up with her primary doctor in regard to this. She can take Tylenol for pain as needed. 01/25/20 23:11 Departure - Departure Time of Disposition: 23:12 Disposition: Home, Self-Care 01 Condition: Good Clinical Impression: Contusion of right hand, initial encounter, Dysuria, Alize vaginitis - Discharge Information Prescriptions: Fluconazole [Diflucan] 150 mg PO ASDIRECTED #2 tab Instructions: Vaginitis, [id number], Vaginal Yeast Infection, Adult, Contusion, [id number] Referrals: Vicki Mirza NP [Primary Care Provider] - Forms: ED Department Discharge, ED Return to Work/School Form Additional Instructions: The x-ray of your right hand did not show any definite fracture. Use the brace that we provided you for comfort and support. Begin using your right hand as tolerated. If you aren't having persisting pain in the right hand without improvement over the next week, you should follow-up with your primary provider. Your urine test showed no definite evidence of infection. As we discussed, this could possibly be a yeast infection and I am placing you on a medication to treat for this possibility (Diflucan). I also sent your urine for culture and if there is any evidence of infection, we will call you for additional medications. Crease your fluid intake. Apply ice packs intermittently to the right hand. You can take Tylenol as needed for pain. Back to the emergency department for redness, increased swelling, abdominal pain, vomiting or any other concerning sign or symptom. Sepsis Event Note (ED) - Focused Exam Vital Signs: Vital Signs Temp Pulse Resp BP Pulse Ox 01/25/20 21:59 36.6 C 67 18 165/93 H 95 - My Orders Last 24 Hours: My Active Orders 01/25/20 21:46 Hand Comp Min 3V Rt [CR] Stat 01/25/20 22:40 CULTURE URINE [RM] Stat - Assessment/Plan Last 24 Hours: My Active Orders 01/25/20 21:46 Hand Comp Min 3V Rt [CR] Stat 01/25/20 22:40 CULTURE URINE [RM] Stat
[2020-01-25 22:01] VITALS: BP 165/93; PULSE 67
--- NOTE | 2020-01-26 10:09 | CR ---
INDICATION: Fall with injury to right hand. RIGHT HAND: Three views of the right hand were obtained 01/25/20 - no comparison . An acute fracture, dislocation, or other significant bone or joint abnormality was not identified. If occult fracture site is suspected clinically - if symptoms persist - reexamination in 10-14 days may be helpful. MTDD
== END 2020-01-25 23:24 | disposition home or self-care (01) ==
LOC: FB.ED 21:21
DX: S60.221A Contusion of right hand, initial encounter (principal); B37.3 Candidiasis of vulva and vagina; J45.909 Unspecified asthma, uncomplicated; E11.9 Type 2 diabetes mellitus without complications; F31.9 Bipolar disorder, unspecified; E66.9 Obesity, unspecified; F17.200 Nicotine dependence, unspecified, uncomplicated; Z88.1 Allergy status to other antibiotic agents; Z88.5 Allergy status to narcotic agent; Z88.0 Allergy status to penicillin; Z88.2 Allergy status to sulfonamides; Z88.6 Allergy status to analgesic agent; Z79.899 Other long term (current) drug therapy; Z90.49 Acquired absence of other specified parts of digestive tract; W01.10XA Fall on same level from slipping, tripping and stumbling with subsequent striking against unspecified object, initial encounter
CPT/HCPCS: 73130-RT; 81001; 81025; 87086; 99283

== ENCOUNTER 2020-01-26 20:52 | Emergency (ER) | payer MEDICARE, MEDICAID ==
[2020-01-26] MEDS ORDERED: Ketorolac 60 MG/2 ML SDV IM ONE (21:32)
--- NOTE | 2020-01-26 21:39 | EDM.PDOC ---
ED HPI GENERAL MEDICAL PROBLEM - General Stated Complaint: hand injury Time Seen by Provider: 01/26/20 21:05 Source of Information: Reports: Patient History Limitations: Reports: No Limitations - History of Present Illness INITIAL COMMENTS - FREE TEXT/NARRATIVE: Patient presented to the ED because of right hand pain. She fell yesterday and landed on her right hand. She was seen in the ED yesterday and Xray wass negative. She was then discharged to home with a wrist splint, tramadol and tylenol. Her pain persisted and swelling got worse with some discoloration. - Related Data Allergies Allergy/AdvReac Type Severity Reaction Status Date / Time amoxicillin Allergy Other Verified 01/26/20 22:28 aspirin Allergy Hives Verified 01/26/20 22:28 codeine Allergy Hives Verified 01/26/20 22:28 ibuprofen Allergy Nausea and Verified 01/26/20 22:28 Vomiting levofloxacin [From Levaquin] Allergy Airway Verified 01/26/20 22:28 Tightness Penicillins Allergy Other Verified 01/26/20 22:28 Sulfa (Sulfonamide Allergy Airway Verified 01/26/20 22:28 Antibiotics) Tightness Home Meds: Home Meds Carboxymethylcellulose Sodium [Refresh Tears 0.5% Ophth Soln] 1 drop EYEBOTH BID PRN 03/02/13 [History] Cyclobenzaprine [Flexeril] 10 mg PO TID PRN 03/02/13 [History] Fluticasone Propionate [Flovent HFA 44 MCG] 1 puff INH TID PRN 03/02/13 [History] Rizatriptan [Maxalt STRIP MACHINE OPERATOR] 10 mg PO ASDIRECTED PRN 03/02/13 [History] lamoTRIgine [Lamotrigine] 100 mg PO BEDTIME 03/02/13 [History] traMADol HCl [Tramadol HCl] 50 mg PO Q8HR PRN 03/02/13 [History] FLUoxetine HCl [Prozac] 20 mg PO BEDTIME 11/04/17 [History] ARIPiprazole [Abilify] 2 mg PO DAILY 01/11/20 [History] Celecoxib [CeleBREX] 200 mg PO DAILY 01/11/20 [History] Levocetirizine Dihydrochloride [Xyzal] 5 mg PO BEDTIME 01/11/20 [History] Meloxicam [Mobic] 15 mg PO BEDTIME 01/11/20 [History] Nitrofurantoin Monohyd/M-Cryst [Macrobid 100 mg Capsule] 100 mg PO BID #20 capsule 01/11/20 [Rx] Omeprazole 40 mg PO DAILY 01/11/20 [History] tiZANidine [Zanaflex] 2 mg PO BEDTIME 01/11/20 [History] Fluconazole [Diflucan] 150 mg PO ASDIRECTED #2 tab 01/25/20 [Rx] Ketorolac [Toradol] 10 mg PO TID #15 tab 01/26/20 [Rx] traMADol [Ultram] 100 mg PO Q8H PRN #15 tab 01/26/20 [Rx] Past Medical History HEENT History: Reports: Impaired Vision Respiratory History: Reports: Asthma, Bronchitis, Recurrent Gastrointestinal History: Reports: Celiac Disease 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 - Past Surgical History HEENT Surgical History: Reports: Adenoidectomy, Myringotomy w Tube(s), Tonsillectomy GI Surgical History: Reports: Appendectomy, Cholecystectomy Musculoskeletal Surgical History: Reports: Arthroscopic Knee (Right knee), ORIF (Bilateral ankles), Other (See Below) Other Musculoskeletal Surgeries/Procedures:: Hx surgery to left foot and right calf. extensive hardware. also has abhilash in back from when she was a child Social & Family History - Family History Family Medical History: Noncontributory Cardiac: Reports: CAD, Hypertension Endocrine/Metabolic: Reports: Diabetes, type II Oncologic: Reports: Other (See Below) - Caffeine Use Caffeine Use: Reports: Coffee - Sexual History Other Sexual History Comment: recently with new partner - Living Situation & Occupation Living situation: Reports: Occupation: Employed Review of Systems - Review of Systems Review Of Systems: See Below Constitutional: Reports: No Symptoms Ears: Reports: No Symptoms Nose: Reports: No Symptoms Mouth/Throat: Reports: No Symptoms Respiratory: Reports: No Symptoms Cardiovascular: Reports: No Symptoms GI/Abdominal: Reports: No Symptoms Genitourinary: Reports: No Symptoms Musculoskeletal: Reports: Other (rt hand pain) Skin: Reports: No Symptoms ED EXAM, GENERAL - Physical Exam Exam: See Below Exam Limited By: No Limitations General Appearance: Alert, No Apparent Distress Eye Exam: Bilateral Eye: PERRL Ears: Normal External Exam, Normal Canal Nose: Normal Inspection, Normal Mucosa Throat/Mouth: Normal Inspection, Normal Lips Head: Atraumatic, Normocephalic Neck: Normal Inspection, Supple, Non-Tender, Full Range of Motion Respiratory/Chest: No Respiratory Distress, Lungs Clear, Normal Breath Sounds Cardiovascular: Normal Peripheral Pulses, Regular Rate, Rhythm, No Edema, No Gallop GI/Abdominal: Normal Bowel Sounds, Soft, Non-Tender Back Exam: Normal Inspection, Full Range of Motion Extremities: Limited Range of Motion, Other (tenderness and selling based of the 3rd and 4th finger) Course - Vital Signs Text/Narrative:: xray result reviewed with patient Last Recorded V/S: Last Vital Signs Temp 36.4 C 01/26/20 21:00 Pulse 67 01/26/20 21:00 Resp 20 01/26/20 21:00 BP 133/65 01/26/20 21:00 Pulse Ox 67 L 01/26/20 21:00 - Orders/Labs/Meds Meds: Medications Discontinued Medications Generic Name Dose Route Start Last Admin Trade Name Freq PRN Reason Stop Dose Admin Ketorolac Tromethamine 60 mg 01/26/20 21:32 01/26/20 21:50 Toradol IM 01/26/20 21:33 60 mg ONETIME ONE Administration Departure - Departure Time of Disposition: 22:00 Disposition: Home, Self-Care 01 Condition: Good Clinical Impression: Hand contusion - Discharge Information Prescriptions: Ketorolac [Toradol] 10 mg PO TID #15 tab traMADol [Ultram] 100 mg PO Q8H PRN #15 tab PRN Reason: Pain Instructions: Hand Contusion, [id number] Referrals: Vicki Mirza NP [Primary Care Provider] - Forms: ED Department Discharge, ED Return to Work/School Form Additional Instructions: Please read discharge instructions on hand contusion Continue using your wrist splint Take toradol 10 mg 3 times daily for 5 days. Take it with food because it can cause an upset stomach Tramadol 100 mg with tylenol 1000 mg every 8 hours as needed for pain. Take them both at the same time for better pain relief Follow up as needed Sepsis Event Note (ED) - Focused Exam Vital Signs: Vital Signs Temp Pulse Resp BP Pulse Ox 01/26/20 21:00 36.4 C 67 20 133/65 67 L
[2020-01-26 22:28] VITALS: BP 133/65; PULSE 67
== END 2020-01-26 21:53 | disposition home or self-care (01) ==
LOC: FB.ED 20:52
DX: S60.221A Contusion of right hand, initial encounter (principal); J45.909 Unspecified asthma, uncomplicated; E11.9 Type 2 diabetes mellitus without complications; Z88.1 Allergy status to other antibiotic agents; Z88.5 Allergy status to narcotic agent; Z88.0 Allergy status to penicillin; Z88.2 Allergy status to sulfonamides; Z90.49 Acquired absence of other specified parts of digestive tract; Z79.899 Other long term (current) drug therapy; W19.XXXA Unspecified fall, initial encounter
CPT/HCPCS: 96372; 99283; J1885

== ENCOUNTER 2020-02-19 14:00 | Emergency (ER) | payer MEDICARE, MEDICAID ==
[2020-02-19] MEDS ORDERED: Ketorolac 60 MG/2 ML SDV IM ONE (14:24)
--- NOTE | 2020-02-19 15:18 | EDM.PDOC ---
ED HPI GENERAL MEDICAL PROBLEM - General Chief Complaint: Lower Extremity Injury/Pain Stated Complaint: LT ANKLE INJURY Time Seen by Provider: 02/19/20 14:05 Source of Information: Reports: Patient History Limitations: Reports: No Limitations - History of Present Illness INITIAL COMMENTS - FREE TEXT/NARRATIVE: Patient presented to the ED because of left ankle and foot pain. She missed a step on the stairs and twisted her left ankle and foot. She is able to ambulate but with pain. Left Ankle Pain Score (Numeric/FACES): 10 - Related Data Allergies Allergy/AdvReac Type Severity Reaction Status Date / Time amoxicillin Allergy Other Verified 02/19/20 14:13 aspirin Allergy Hives Verified 02/19/20 14:13 codeine Allergy Hives Verified 02/19/20 14:13 ibuprofen Allergy Nausea and Verified 02/19/20 14:13 Vomiting levofloxacin [From Levaquin] Allergy Airway Verified 02/19/20 14:13 Tightness Penicillins Allergy Other Verified 02/19/20 14:13 Sulfa (Sulfonamide Allergy Airway Verified 02/19/20 14:13 Antibiotics) Tightness Home Meds: Home Meds Carboxymethylcellulose Sodium [Refresh Tears 0.5% Ophth Soln] 1 drop EYEBOTH BID PRN 03/02/13 [History] Cyclobenzaprine [Flexeril] 10 mg PO TID PRN 03/02/13 [History] Fluticasone Propionate [Flovent HFA 44 MCG] 1 puff INH TID PRN 03/02/13 [History] Rizatriptan [Maxalt CEMENT BLOCK MAKER] 10 mg PO ASDIRECTED PRN 03/02/13 [History] lamoTRIgine [Lamotrigine] 100 mg PO BEDTIME 03/02/13 [History] traMADol HCl [Tramadol HCl] 50 mg PO Q8HR PRN 03/02/13 [History] FLUoxetine HCl [Prozac] 20 mg PO BEDTIME 11/04/17 [History] ARIPiprazole [Abilify] 2 mg PO DAILY 01/11/20 [History] Celecoxib [CeleBREX] 200 mg PO DAILY 01/11/20 [History] Levocetirizine Dihydrochloride [Xyzal] 5 mg PO BEDTIME 01/11/20 [History] Meloxicam [Mobic] 15 mg PO BEDTIME 01/11/20 [History] Omeprazole 40 mg PO DAILY 01/11/20 [History] tiZANidine [Zanaflex] 2 mg PO BEDTIME 01/11/20 [History] Fluconazole [Diflucan] 150 mg PO ASDIRECTED #2 tab 01/25/20 [Rx] Ketorolac [Toradol] 10 mg PO TID #15 tab 01/26/20 [Rx] traMADol [Ultram] 100 mg PO Q8H PRN #15 tab 01/26/20 [Rx] Past Medical History HEENT History: Reports: Impaired Vision Respiratory History: Reports: Asthma, Bronchitis, Recurrent Gastrointestinal History: Reports: Celiac Disease 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 - Past Surgical History HEENT Surgical History: Reports: Adenoidectomy, Myringotomy w Tube(s), Tonsillec sriram GI Surgical History: Reports: Appendectomy, Cholecystectomy Musculoskeletal Surgical History: Reports: Arthroscopic Knee (Right knee), ORIF (Bilateral ankles), Other (See Below) Other Musculoskeletal Surgeries/Procedures:: Hx surgery to left foot and right calf. extensive hardware. also has abhilash in back from when she was a child Social & Family History - Family History Family Medical History: Noncontributory Cardiac: Reports: CAD, Hypertension Endocrine/Metabolic: Reports: Diabetes, type II Oncologic: Reports: Other (See Below) - Caffeine Use Caffeine Use: Reports: Coffee - Sexual History Other Sexual History Comment: recently with new partner - Living Situation & Occupation Living situation: Reports: Occupation: Employed Review of Systems - Review of Systems Review Of Systems: See Below Constitutional: Reports: No Symptoms Eyes: Reports: No Symptoms Ears: Reports: No Symptoms Nose: Reports: No Symptoms Mouth/Throat: Reports: No Symptoms Respiratory: Reports: No Symptoms Cardiovascular: Reports: No Symptoms GI/Abdominal: Reports: No Symptoms Genitourinary: Reports: No Symptoms Musculoskeletal: Reports: Foot Pain, Joint Pain, Joint Swelling Skin: Reports: No Symptoms ED EXAM, GENERAL - Physical Exam Exam: See Below Exam Limited By: No Limitations General Appearance: Alert, No Apparent Distress Eye Exam: Bilateral Eye: PERRL Ears: Normal External Exam, Normal Canal Nose: Normal Inspection, Normal Mucosa Throat/Mouth: Normal Inspection, Normal Lips, Normal Teeth, Normal Gums Head: Atraumatic, Normocephalic Neck: Normal Inspection, Supple, Non-Tender, Full Range of Motion Respiratory/Chest: No Respiratory Distress, Lungs Clear, Normal Breath Sounds, No Accessory Muscle Use, Chest Non-Tender Cardiovascular: Normal Peripheral Pulses, Regular Rate, Rhythm, No Edema, No Gallop, No JVD, No Murmur, No Rub GI/Abdominal: Normal Bowel Sounds, Soft, Non-Tender, No Organomegaly Back Exam: Normal Inspection, Full Range of Motion, Paraspinal Tenderness Extremities: Joint Swelling, Limited Range of Motion, Other (tenderness, meadial and lateral aspect of the left maleolus) Course - Vital Signs Text/Narrative:: Xray left ankle/foot-see result Toradol 60 mg IM Crutches provide Air splint applied by ED physician Last Recorded V/S: Last Vital Signs Temp 36.4 C 02/19/20 16:07 Pulse 66 02/19/20 16:07 Resp 17 02/19/20 16:07 BP 149/77 H 02/19/20 16:07 Pulse Ox 100 02/19/20 16:07 - Orders/Labs/Meds Meds: Medications Discontinued Medications Generic Name Dose Route Start Last Admin Trade Name Mónica PRN Reason Stop Dose Admin Ketorolac Tromethamine 60 mg 02/19/20 14:24 02/19/20 14:36 Toradol IM 02/19/20 14:25 60 mg ONETIME ONE Administration Departure - Departure Time of Disposition: 15:15 Disposition: Home, Self-Care 01 Condition: Good Clinical Impression: Ankle sprain, Foot sprain - Discharge Information Instructions: Ankle Sprain, [id number], Foot Sprain Referrals: Vicki Mirza NP [Primary Care Provider] - Forms: ED Department Discharge Additional Instructions: Please read discharge instructions Take your prescriptions as prescribed Use your crutches at all times We will call you if there is any changes on your xray reading Follow up as needed Sepsis Event Note (ED) - Evaluation Sepsis Screening Result: No Definite Risk
--- NOTE | 2020-02-19 16:58 | CR ---
INDICATION: Left foot/ankle injury. LEFT FOOT: Three views of the left foot were obtained 02/19/20 - no comparison. Small posterior and moderate sized plantar calcaneal spurs are noted. Degenerative changes are noted at the subtalar joints. Mild degenerative changes are also suggested at the 2nd and 3rd metatarsal tarsal joints with minimal degenerative change at the talonavicular joint. An acute fracture or dislocation was not identified. If symptoms persist - if occult fracture site is suspected clinically, re- examination in 10-14 days may be helpful. MTDD
--- NOTE | 2020-02-19 17:00 | CR ---
INDICATION: Left foot/ankle injury. LEFT ANKLE: Three views of the left ankle were obtained 02/19/20 - no comparison. Fairly marked soft tissue swelling is noted overlying the lateral malleolus. However, definite acute fracture or dislocation was not identified with the ankle mortise appearing intact. There are noted some minimal degenerative changes about the ankle mortise. The clear spaces of the ankle mortise are fairly symmetrical however. IMPRESSION: 1. No acute fracture or dislocation. 2. Osteoarthritis. 3. Calcaneal spurs. MTDD
[2020-02-19 19:17] VITALS: BP 149/77; PULSE 66
== END 2020-02-19 16:15 | disposition home or self-care (01) ==
LOC: FB.ED 14:00
DX: S93.402A Sprain of unspecified ligament of left ankle, initial encounter (principal); S93.602A Unspecified sprain of left foot, initial encounter; J45.909 Unspecified asthma, uncomplicated; E11.9 Type 2 diabetes mellitus without complications; F31.9 Bipolar disorder, unspecified; R56.9 Unspecified convulsions; Z88.1 Allergy status to other antibiotic agents; Z88.6 Allergy status to analgesic agent; Z88.5 Allergy status to narcotic agent; Z88.0 Allergy status to penicillin; Z88.2 Allergy status to sulfonamides; Z79.899 Other long term (current) drug therapy; X50.1XXA Overexertion from prolonged static or awkward postures, initial encounter
CPT/HCPCS: 73610; 73630; 96372; 99283; J1885

== ENCOUNTER 2020-03-03 19:07 | Emergency (ER) | payer MEDICARE, MEDICAID ==
[2020-03-03] MEDS ORDERED: Ondansetron 4 MG Tab.DIS PO ONE (19:08)
[2020-03-03] MEDS ORDERED: Sodium Chloride 0.9% 10 ML Syringe FLUSH PRN (19:20)
[2020-03-03] MEDS ORDERED: Ondansetron 4 MG/2 ML SDV IVPUSH ONE (19:23)
[2020-03-03] MEDS ORDERED: Sodium Chloride 0.9% 1,000 ML IV SCH ×2 (19:30→21:30)
--- NOTE | 2020-03-03 22:15 | EDM.PDOC ---
ED HPI GENERAL MEDICAL PROBLEM - General Chief Complaint: Gastrointestinal Problem Time Seen by Provider: 03/03/20 19:15 Source of Information: Reports: Patient History Limitations: Reports: No Limitations - History of Present Illness INITIAL COMMENTS - FREE TEXT/NARRATIVE: Patient presented to the ED because of N/V/D for 2 weeks. Her diarrhea is mostly watery,denies having any abdominal pain. No cough/cold symptoms, no afebrile but has chills. - Related Data Allergies Allergy/AdvReac Type Severity Reaction Status Date / Time amoxicillin Allergy Other Verified 03/04/20 01:57 aspirin Allergy Hives Verified 03/04/20 01:57 codeine Allergy Hives Verified 03/04/20 01:57 ibuprofen Allergy Nausea and Verified 03/04/20 01:57 Vomiting levofloxacin [From Levaquin] Allergy Airway Verified 03/04/20 01:57 Tightness Penicillins Allergy Other Verified 03/04/20 01:57 Sulfa (Sulfonamide Allergy Airway Verified 03/04/20 01:57 Antibiotics) Tightness Home Meds: Home Meds Carboxymethylcellulose Sodium [Refresh Tears 0.5% Ophth Soln] 1 drop EYEBOTH BID PRN 03/02/13 [History] Cyclobenzaprine [Flexeril] 10 mg PO TID PRN 03/02/13 [History] Fluticasone Propionate [Flovent HFA 44 MCG] 1 puff INH TID PRN 03/02/13 [History] Rizatriptan [[employer]] 10 mg PO ASDIRECTED PRN 03/02/13 [History] lamoTRIgine [Lamotrigine] 100 mg PO BEDTIME 03/02/13 [History] traMADol HCl [Tramadol HCl] 50 mg PO Q8HR PRN 03/02/13 [History] FLUoxetine HCl [Prozac] 20 mg PO BEDTIME 11/04/17 [History] ARIPiprazole [Abilify] 2 mg PO DAILY 01/11/20 [History] Celecoxib [CeleBREX] 200 mg PO DAILY 01/11/20 [History] Levocetirizine Dihydrochloride [Xyzal] 5 mg PO BEDTIME 01/11/20 [History] Meloxicam [Mobic] 15 mg PO BEDTIME 01/11/20 [History] Omeprazole 40 mg PO DAILY 01/11/20 [History] tiZANidine [Zanaflex] 2 mg PO BEDTIME 01/11/20 [History] Fluconazole [Diflucan] 150 mg PO ASDIRECTED #2 tab 01/25/20 [Rx] Ketorolac [Toradol] 10 mg PO TID #15 tab 01/26/20 [Rx] traMADol [Ultram] 100 mg PO Q8H PRN #15 tab 01/26/20 [Rx] Past Medical History HEENT History: Reports: Impaired Vision Respiratory History: Reports: Asthma, Bronchitis, Recurrent Gastrointestinal History: Reports: Celiac Disease 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 - Past Surgical History HEENT Surgical History: Reports: Adenoidectomy, Myringotomy w Tube(s), Tonsillectomy GI Surgical History: Reports: Appendectomy, Cholecystectomy Musculoskeletal Surgical History: Reports: Arthroscopic Knee (Right knee), ORIF (Bilateral ankles), Other (See Below) Other Musculoskeletal Surgeries/Procedures:: Hx surgery to left foot and right calf. extensive hardware. also has abhilash in back from when she was a child Social & Family History - Family History Family Medical History: No Pertinent Family History Cardiac: Reports: CAD, Hypertension Endocrine/Metabolic: Reports: Diabetes, type II Oncologic: Reports: Other (See Below) - Caffeine Use Caffeine Use: Reports: Coffee - Sexual History Other Sexual History Comment: recently with new partner - Living Situation & Occupation Living situation: Reports: Occupation: Employed ED ROS GENERAL - Review of Systems Review Of Systems: See Below Constitutional: Reports: Weakness HEENT: Reports: No Symptoms Respiratory: Reports: No Symptoms Cardiovascular: Reports: No Symptoms Endocrine: Reports: No Symptoms GI/Abdominal: Reports: Diarrhea, Nausea, Vomiting : Reports: No Symptoms Musculoskeletal: Reports: No Symptoms Skin: Reports: No Symptoms Neurological: Reports: No Symptoms Psychiatric: Reports: No Symptoms Hematologic/Lymphatic: Reports: No Symptoms Immunologic: Reports: No Symptoms ED EXAM, GI/ABD - Physical Exam Exam: See Below Exam Limited By: No Limitations General Appearance: Alert, No Apparent Distress Nose: Normal Inspection, Normal Mucosa Throat/Mouth: Normal Inspection, Normal Lips, Normal Teeth, Normal Gums Head: Atraumatic, Normocephalic Neck: Normal Inspection, Supple, Non-Tender, Full Range of Motion Respiratory/Chest: No Respiratory Distress, Lungs Clear, Normal Breath Sounds Cardiovascular: Normal Peripheral Pulses, Regular Rate, Rhythm, No Edema, No Gallop GI/Abdominal Exam: Soft, Non-Tender, No Organomegaly, Other (hyperactive BS) Back Exam: Normal Inspection Extremities: Normal Inspection Neurological: Alert, Oriented, CN II-XII Intact Psychiatric: Normal Affect, Normal Mood Course - Vital Signs Text/Narrative:: Lab results was discussed with patient Zofran 4 mg IV x1 NS 1 L x 2 Last Recorded V/S: Last Vital Signs Temp 38.6 C H 03/03/20 22:45 Pulse 84 03/03/20 22:45 Resp 17 03/03/20 22:45 BP 154/59 H 03/03/20 22:45 Pulse Ox 98 03/03/20 22:45 - Orders/Labs/Meds Orders: Active Orders 24 hr Category Date Time Status Saline Lock Insert [OM.PC] Routine Oth 03/03/20 19:20 Ordered Labs: Laboratory Tests 03/03/20 03/03/20 03/03/20 Range/Units 19:21 20:05 20:05 WBC 13.2 H (3.0-10.3) x10-3/uL RBC 4.00 (3.60-5.20) x10(6)uL Hgb 12.0 (11.4-15.5) g/dL Hct 35.7 (34.2-48.2) % MCV 89.2 (76.7-100.5) fL MCH 29.9 (23.9-33.9) pg MCHC 33.6 (31.9-34.8) g/dL RDW 13.8 (12.3-16.5) % Plt Count 181 (151-488) x10(3)uL MPV 10.0 (7.1-12.4) fL Neut % (Auto) 84.6 H (30.8-76.2) % Lymph % (Auto) 8.3 L (18.4-52.1) % Floyd % (Auto) 6.8 (4.4-15.7) % Eos % (Auto) 0.0 L (0.6-8.1) % Baso % (Auto) 0.3 (0.2-1.5) % Neut # (Auto) 11.1 H (1.5-6.3) x10-3/uL Lymph # (Auto) 1.1 (1.0-4.4) x10-3/uL Floyd # (Auto) 0.9 (0.3-1.0) x10-3/uL Eos # (Auto) 0.0 (0.0-0.8) x10-3/uL Baso # (Auto) 0.0 (0.0-0.1) x10-3/uL Sodium 126 L D (135-145) mmol/L Potassium 4.3 D (3.5-5.3) mmol/L Chloride 93 L D (100-110) mmol/L Carbon Dioxide 20 L (21-32) mmol/L BUN 56 H D (7-18) mg/dL Creatinine 7.3 H* (0.55-1.02) mg/dL Est Cr Clr Drug Dosing TNP Estimated GFR (MDRD) 6 L (>60) BUN/Creatinine Ratio 7.7 L (9-20) Glucose 135 H (80-116) mg/dL Calcium 8.8 (8.6-10.2) mg/dL Total Bilirubin 1.1 (0.1-1.3) mg/dL AST 29 H D (5-25) IU/L ALT 29 D (12-36) U/L Alkaline Phosphatase 199 H (56-112) IU/L Total Protein 7.2 (6.0-8.0) g/dL Albumin 2.3 L (3.5-5.2) g/dL Globulin 4.9 g/dL Albumin/Globulin Ratio 0.5 SARS-CoV-2 RNA (AMAURI) Negative (NEGATIVE) Meds: Medications Discontinued Medications Generic Name Dose Route Start Last Admin Trade Name Freq PRN Reason Stop Dose Admin Sodium Chloride 1,000 mls @ 999 mls/hr 03/03/20 19:30 03/03/20 20:19 Normal Saline IV 999 mls/hr ASDIRECTED VICENTE Administration Sodium Chloride 1,000 mls @ 999 mls/hr 03/03/20 21:30 03/03/20 21:25 Normal Saline IV 999 mls/hr ASDIRECTED VICENTE Administration Ondansetron HCl 4 mg 03/03/20 19:23 03/03/20 20:17 Zofran IVPUSH 03/03/20 19:24 4 mg ONETIME ONE Administration Ondansetron HCl 16 mg 03/03/20 19:08 Zofran Odt PO 03/03/20 19:09 .STK-MED ONE Sodium Chloride 10 ml 03/03/20 19:20 Saline Flush FLUSH ASDIRECTED PRN Keep Vein Open Departure - Departure Time of Disposition: 22:45 Disposition: Home, Self-Care 01 Condition: Good Clinical Impression: Gastroenteritis, Dehydration, KRISHAN (acute kidney injury) - Discharge Information Instructions: Acute Kidney Injury, Adult, Viral Gastroenteritis, Adult, [id number], Dehydration, Adult, [id number] Referrals: PCP,None [Primary Care Provider] - Forms: ED Department Discharge Additional Instructions: Please read discharge instructions on dehydration,Gastroenteritis and acute kidney injury Frequent hand washing Drink 2-4 liters of water a day Zofran ODT 4 mg every 4 hours as needed for nausea Imodium(over the counter(, take 2 tablets every 6 hours as needed for diarrhea Return to the ED tomorrow at 4 pm for another 2 Liters of IV fluid and lab test - My Orders Last 24 Hours: My Active Orders 03/03/20 19:20 Saline Lock Insert [OM.PC] Routine - Assessment/Plan Last 24 Hours: My Active Orders 03/03/20 19:20 Saline Lock Insert [OM.PC] Routine
--- NOTE | 2020-03-03 22:41 | CR ---
CHEST ONE VIEW INDICATION: Cough. AP upright portable view of the chest was obtained on 03/04/2020 and compared with 04/10/2013. The heart appears enlarged but is emphasized by a poor inspiration. It is also emphasized by the AP positioning. Pulmonary vasculature appears somewhat prominent raising question of CHF. This should be correlated clinically. Somewhat heavy markings makes it difficult to exclude patchy bronchopneumonia in the lung bases. However, no consolidating pneumonia or definite effusion was identified. Bridging hyperostotic changes noted laterally in the mid to lower thoracic spine. Exogenous obesity is noted. IMPRESSION: 1. Cannot exclude ASHD, cardiomegaly and mild CHF. 2. Cannot exclude minimal patchy bronchopneumonia at the lung bases, especially on the left. 3. Exogenous obesity. 4. DJD spine. MTDD
[2020-03-03 22:47] VITALS: BP 154/59; PULSE 84
== END 2020-03-03 23:15 | disposition home or self-care (01) ==
LOC: FB.ED 19:07
DX: N17.9 Acute kidney failure, unspecified (principal); K52.9 Noninfective gastroenteritis and colitis, unspecified; E86.0 Dehydration; J45.909 Unspecified asthma, uncomplicated; R56.9 Unspecified convulsions; F31.9 Bipolar disorder, unspecified; E11.9 Type 2 diabetes mellitus without complications; Z79.899 Other long term (current) drug therapy; Z88.1 Allergy status to other antibiotic agents; Z88.6 Allergy status to analgesic agent; Z88.5 Allergy status to narcotic agent; Z88.2 Allergy status to sulfonamides; Z88.0 Allergy status to penicillin; Z20.828 Contact with and (suspected) exposure to other viral communicable diseases
CPT/HCPCS: 36415; 71045; 80053; 85025; 96374; 99284; A9270; J2405; J7030; U0002

== ENCOUNTER 2020-03-04 19:54 | Emergency (ER) | payer MEDICARE, MEDICAID ==
--- NOTE | 2020-03-04 20:01 | EDM.PDOC ---
ED HPI GENERAL MEDICAL PROBLEM - General Chief Complaint: Genitourinary Problem Time Seen by Provider: 03/04/20 19:54 Source of Information: Reports: Patient History Limitations: Reports: No Limitations - History of Present Illness INITIAL COMMENTS - FREE TEXT/NARRATIVE: 50-year-old female who reports vomiting for the past 2-1/2 weeks. She reports that it has been off and on but over the past week she has pretty much had vomiting every day. She did not have any vomiting today. Beginning about 2 days ago, she developed watery diarrhea and has had 4 watery stools today. She was seen in the emergency department yesterday because of this vomiting and also because she was having weakness and dizziness. She does have some back pain but it was no different than her usual chronic back pain. She had no abdominal discomfort. She had blood tests performed yesterday and she also had IV fluids given and on the blood tests her creatinine was 7.3. It was advised her that she needed admission to the hospital but she refused this and Dr. Dumont (the physician who saw the patient yesterday) arrange for the patient to come back today to get outpatient therapy with 2 more liters of normal saline IV. She was supposed come in earlier today but did not come in until about 4 to 5 PM. She received an additional 2 L of IV fluid today and had repeat chemistries and her repeat creatinine today was 8.1 after the IV fluids. She still reports feelings of weakness and dizziness. She reports that her back pain which is all over her back as an 8/10. It is an aching and sharp type pain. It is worse with movement and with palpation. It is chronic and is really no different than it has been in the past. It should also be noted that the patient had a fever of 102.6F yesterday and today she has a temperature of 100.8F. She reports no dysuria or hematuria but she does report that her urine output has been decreased. She has a cough but she reports it is chronic and "I always have a cough". She denies any shortness of breath. She denies any phlegm production. There are no other associated signs or symptoms. There are no other modifying factors. 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 - Related Data Allergies Allergy/AdvReac Type Severity Reaction Status Date / Time amoxicillin Allergy Other Verified 03/04/20 19:58 aspirin Allergy Hives Verified 03/04/20 19:58 codeine Allergy Hives Verified 03/04/20 19:58 ibuprofen Allergy Nausea and Verified 03/04/20 19:58 Vomiting levofloxacin [From Levaquin] Allergy Airway Verified 03/04/20 19:58 Tightness Penicillins Allergy Other Verified 03/04/20 19:58 Sulfa (Sulfonamide Allergy Airway Verified 03/04/20 19:58 Antibiotics) Tightness Home Meds: Home Meds Cyclobenzaprine [Flexeril] 10 mg PO TID PRN 03/02/13 [History] Fluticasone Propionate [Flovent HFA 44 MCG] 1 puff INH TID PRN 03/02/13 [History] Rizatriptan [Maxalt SHAMPOO ASSISTANT] 10 mg PO ASDIRECTED PRN 03/02/13 [History] lamoTRIgine [Lamotrigine] 100 mg PO BEDTIME 03/02/13 [History] traMADol HCl [Tramadol HCl] 50 mg PO Q8HR PRN 03/02/13 [History] FLUoxetine HCl [Prozac] 20 mg PO BEDTIME 11/04/17 [History] ARIPiprazole [Abilify] 2 mg PO DAILY 01/11/20 [History] Celecoxib [CeleBREX] 200 mg PO DAILY 01/11/20 [History] Levocetirizine Dihydrochloride [Xyzal] 5 mg PO BEDTIME 01/11/20 [History] Meloxicam [Mobic] 15 mg PO BEDTIME 01/11/20 [History] Omeprazole 40 mg PO DAILY 01/11/20 [History] tiZANidine [Zanaflex] 2 mg PO BEDTIME 01/11/20 [History] Ketorolac [Toradol] 10 mg PO TID #15 tab 01/26/20 [Rx] traMADol [Ultram] 100 mg PO Q8H PRN #15 tab 01/26/20 [Rx] Past Medical History HEENT History: Reports: Impaired Vision Respiratory History: Reports: Asthma, Bronchitis, Recurrent Gastrointestinal History: Reports: Celiac Disease Neurological History: Reports: Seizure Psychiatric History: Reports: Bipolar Endocrine/Metabolic History: Reports: Diabetes, Type II, Obesity/BMI 30+ Other Endocrine/Metabolic History: States she is borderline diabetic. - Past Surgical History HEENT Surgical History: Reports: Adenoidectomy, Myringotomy w Tube(s), Tonsillectomy GI Surgical History: Reports: Appendectomy, Cholecystectomy Musculoskeletal Surgical History: Reports: Arthroscopic Knee (Right knee), ORIF (Bilateral ankles), Other (See Below) Other Musculoskeletal Surgeries/Procedures:: Hx surgery to left foot and right calf. extensive hardware. also has abhilash in back from when she was a child Social & Family History - Family History Cardiac: Reports: CAD, Hypertension Endocrine/Metabolic: Reports: Diabetes, type II Oncologic: Reports: Other (See Below) - Tobacco Use Tobacco Use Status *Q: Unknown Ever Used Tobacco (Nonsmoker.) - Caffeine Use Caffeine Use: Reports: Soda - Alcohol Use Alcohol Use History: No - Living Situation & Occupation Living situation: Reports: Occupation: Employed ED ROS GENERAL - Review of Systems Review Of Systems: See Below Constitutional: Reports: Fever, Chills, Malaise, Weakness, Fatigue, Decreased Appetite HEENT: Reports: No Symptoms Respiratory: Reports: No Symptoms Cardiovascular: Reports: No Symptoms GI/Abdominal: Reports: Diarrhea, Nausea, Vomiting : Reports: Other (Decreased urine output) Musculoskeletal: Reports: Back Pain Skin: Reports: No Symptoms Neurological: Reports: Dizziness Hematologic/Lymphatic: Reports: No Symptoms Immunologic: Reports: No Symptoms ED EXAM, GENERAL - Physical Exam Exam: See Below Exam Limited By: No Limitations General Appearance: Alert, Obese, Other (Appears nontoxic) Eye Exam: Bilateral Eye: EOMI, Normal Inspection, PERRL Ears: Normal External Exam, Hearing Grossly Normal Ear Exam: Bilateral Ear: Auricle Normal Nose: Normal Inspection, Normal Mucosa, No Blood Throat/Mouth: Normal Inspection, Normal Oropharynx, Normal Voice, No Airway Compromise Head: Atraumatic, Normocephalic Neck: Normal Inspection, Supple, Non-Tender, Full Range of Motion Respiratory/Chest: No Respiratory Distress, Lungs Clear, Normal Breath Sounds, No Accessory Muscle Use, Chest Non-Tender Cardiovascular: Normal Peripheral Pulses, Regular Rate, Rhythm, No Gallop, No Murmur Peripheral Pulses: 2+: Radial (L), Radial (R) GI/Abdominal: Normal Bowel Sounds, Soft, Non-Tender, No Mass, Other (Protuberant) Back Exam: Normal Inspection, Paraspinal Tenderness (Diffuse tenderness all over her back. No redness or crepitus.) Extremities: Normal Inspection, Normal Range of Motion, Non-Tender, Normal Capillary Refill, Pedal Edema (Mild swelling in legs. Symmetric.) Neurological: Alert, Oriented, CN II-XII Intact, Normal Cognition, No Motor/Sensory Deficits Psychiatric: Flat Affect Skin Exam: Warm, Dry, Intact, Normal Color, No Rash #1 Interpretation EKG Date: 03/04/20 Time: 20:11 Rhythm: NSR Rate (Beats/Min): 96 Horton: Normal P-Wave: Present QRS: Normal ST-T: Other (Nonspecific T-wave abnormalities.) QT: Normal Comparison: NA - No Prior EKG EKG Interpretation Comments: Ventricular trigeminy Course - Vital Signs Last Recorded V/S: Last Vital Signs Temp 37.1 C 03/05/20 00:23 Pulse 84 03/05/20 00:23 Resp 18 03/05/20 00:23 BP 135/60 03/05/20 00:23 Pulse Ox 92 L 03/05/20 00:23 - Orders/Labs/Meds Orders: Active Orders 24 hr Category Date Time Status Insert Urinary Catheter [OM.PC] Q24H Care 03/04/20 22:15 Ordered Chest 2V [CR] Stat Exams 03/04/20 20:03 Taken CULTURE URINE [RM] Stat Lab 03/04/20 21:54 Received Blood Culture x2 Reflex Set [OM.PC] Urgent Oth 03/04/20 20:05 Ordered EKG 12 Lead [EK] Routine Ther 03/04/20 20:01 Ordered Labs: Laboratory Tests 03/04/20 03/04/20 03/04/20 Range/Units 18:45 18:45 21:00 WBC 10.8 H (3.0-10.3) x10-3/uL RBC 4.66 (3.60-5.20) x10(6)uL Hgb 13.6 (11.4-15.5) g/dL Hct 40.5 (34.2-48.2) % MCV 87.0 (76.7-100.5) fL MCH 29.1 (23.9-33.9) pg MCHC 33.5 (31.9-34.8) g/dL RDW 12.6 (12.3-16.5) % Plt Count 316 (151-488) x10(3)uL MPV 9.0 (7.1-12.4) fL Neut % (Auto) 69.5 (30.8-76.2) % Lymph % (Auto) 23.8 (18.4-52.1) % Linn % (Auto) 5.4 (4.4-15.7) % Eos % (Auto) 0.6 (0.6-8.1) % Baso % (Auto) 0.7 (0.2-1.5) % Neut # (Auto) 7.5 H (1.5-6.3) x10-3/uL Lymph # (Auto) 2.6 (1.0-4.4) x10-3/uL Linn # (Auto) 0.6 (0.3-1.0) x10-3/uL Eos # (Auto) 0.1 (0.0-0.8) x10-3/uL Baso # (Auto) 0.1 (0.0-0.1) x10-3/uL Sodium 125 L (135-145) mmol/L Potassium 4.5 (3.5-5.3) mmol/L Chloride 93 L (100-110) mmol/L Carbon Dioxide 17 L (21-32) mmol/L BUN 61 H (7-18) mg/dL Creatinine 8.0 H* (0.55-1.02) mg/dL Est Cr Clr Drug Dosing 6.73 mL/min Estimated GFR (MDRD) 5 L (>60) BUN/Creatinine Ratio 7.6 L (9-20) Glucose 97 (80-116) mg/dL Calcium 8.0 L (8.6-10.2) mg/dL Magnesium 1.7 L (1.8-2.5) mg/dL Total Bilirubin 0.8 (0.1-1.3) mg/dL AST 24 D (5-25) IU/L ALT 24 D (12-36) U/L Alkaline Phosphatase 189 H (56-112) IU/L C-Reactive Protein 40.6 H* (0.5-0.9) mg/dL Total Protein 6.5 (6.0-8.0) g/dL Albumin 2.0 L (3.5-5.2) g/dL Globulin 4.5 g/dL Albumin/Globulin Ratio 0.4 Urine Color (YELLOW) Urine Appearance (CLEAR) Urine pH (5.0-6.5) Ur Specific [place] (1.010-1.025) Urine Protein (NEGATIVE) mg/dL Urine Glucose (UA) (NORMAL) mg/dL Urine Ketones (NEGATIVE) mg/dL Urine Occult Blood (NEGATIVE) Urine Nitrite (NEGATIVE) Urine Bilirubin (NEGATIVE) Urine Urobilinogen (NEGATIVE) mg/dL Ur Leukocyte Esterase (NEGATIVE) Urine RBC (0-5) Urine WBC (0-5) Ur Squamous Epith Cells (NS,R,O) Urine Bacteria (NS) Urine Mucus (NS) Urine HCG, Qual (NEGATIVE) 03/04/20 03/04/20 Range/Units 21:54 21:54 WBC (3.0-10.3) x10-3/uL RBC (3.60-5.20) x10(6)uL Hgb (11.4-15.5) g/dL Hct (34.2-48.2) % MCV (76.7-100.5) fL MCH (23.9-33.9) pg MCHC (31.9-34.8) g/dL RDW (12.3-16.5) % Plt Count (151-488) x10(3)uL MPV (7.1-12.4) fL Neut % (Auto) (30.8-76.2) % Lymph % (Auto) (18.4-52.1) % Linn % (Auto) (4.4-15.7) % Eos % (Auto) (0.6-8.1) % Baso % (Auto) (0.2-1.5) % Neut # (Auto) (1.5-6.3) x10-3/uL Lymph # (Auto) (1.0-4.4) x10-3/uL Linn # (Auto) (0.3-1.0) x10-3/uL Eos # (Auto) (0.0-0.8) x10-3/uL Baso # (Auto) (0.0-0.1) x10-3/uL Sodium (135-145) mmol/L Potassium (3.5-5.3) mmol/L Chloride (100-110) mmol/L Carbon Dioxide (21-32) mmol/L BUN (7-18) mg/dL Creatinine (0.55-1.02) mg/dL Est Cr Clr Drug Dosing mL/min Estimated GFR (MDRD) (>60) BUN/Creatinine Ratio (9-20) Glucose (80-116) mg/dL Calcium (8.6-10.2) mg/dL Magnesium (1.8-2.5) mg/dL Total Bilirubin (0.1-1.3) mg/dL AST (5-25) IU/L ALT (12-36) U/L Alkaline Phosphatase (56-112) IU/L C-Reactive Protein (0.5-0.9) mg/dL Total Protein (6.0-8.0) g/dL Albumin (3.5-5.2) g/dL Globulin g/dL Albumin/Globulin Ratio Urine Color Yellow (YELLOW) Urine Appearance Cloudy (CLEAR) Urine pH 5.0 (5.0-6.5) Ur Specific [place] 1.010 (1.010-1.025) Urine Protein 500 H (NEGATIVE) mg/dL Urine Glucose (UA) Normal (NORMAL) mg/dL Urine Ketones Negative (NEGATIVE) mg/dL Urine Occult Blood Large H (NEGATIVE) Urine Nitrite Negative (NEGATIVE) Urine Bilirubin Negative (NEGATIVE) Urine Urobilinogen Normal (NEGATIVE) mg/dL Ur Leukocyte Esterase Large H (NEGATIVE) Urine RBC 10-20 H (0-5) Urine WBC 50-75 H (0-5) Ur Squamous Epith Cells Moderate H (NS,R,O) Urine Bacteria Moderate H (NS) Urine Mucus Moderate H (NS) Urine HCG, Qual Negative (NEGATIVE) Meds: Medications Discontinued Medications Generic Name Dose Route Start Last Admin Trade Name Freq PRN Reason Stop Dose Admin Acetaminophen 1,000 mg 03/04/20 20:06 03/04/20 22:40 Tylenol Extra Strength PO 03/04/20 20:07 1,000 mg ONETIME ONE Administration Acetaminophen Confirm 11/19/20 22:37 Tylenol Extra Strength Administered 03/04/20 22:38 Dose 1,000 mg .ROUTE .STK-MED ONE Ceftriaxone Sodium 1 gm 03/04/20 22:30 03/04/20 22:40 Rocephin IVPUSH 03/04/20 22:31 1 gm ONETIME ONE Administration Sodium Chloride 1,000 mls @ 125 mls/hr 03/04/20 22:00 03/04/20 22:40 Normal Saline IV 125 mls/hr ASDIRECTED VICENTE Administration - Radiology Interpretation Free Text/Narrative:: Chest x-ray PA and lateral shows increased pulmonary vascularity but no definite infiltrate. - Re-Assessments/Exams Free Text/Narrative Re-Assessment/Exam: 03/04/20 21:05: Unable to draw blood on the patient and anesthesia was called in to assist by drawing blood and starting another IV. Anesthesia was unable to start an IV or even draw blood. Multiple attempts were tried by both anesthesia and lab to no avail. The patient's chest x-ray shows no definite infiltrate. She has not been able provide us with a urine specimen and we will have to do a catheterized specimen to obtain this. With the patient's creatinine at 8.1, the inability to draw blood and establish another IV and the lack of nephrology specially services available at [facility], the patient will need transfer to a facility with these available. I discussed this with the patient and she would prefer to be transferred to [facility]. 03/04/20 21:15: I discussed the patient's case with [facility] in [place] they would not be able to accept the patient in transfer tonight. I do not have any beds available. 03/04/20 21:25: I discussed patient's case with the house officer [facility] in [place] and they do not have any beds available be able to accept the patient in transfer. 03/04/20 21:35: I discussed the patient's case with Dr. Anaya, intake physician at in [place], and he has accept the patient in transfer. We will obtain a catheterized urine specimen and send this for culture. You're unable to obtain blood testing including blood cultures at this time. I we will establish normal saline at 125 mL per hour. The patient will be transferred via ambulance to [facility] for direct admission. 03/04/20 22:30: EMS will not be able to transport the patient [facility] for 2 hours. I have ordered normal saline 125 mL per hour and I will also Rocephin 1 g IV. She is remaining hemodynamically and neurologically stable. She is afebrile now. We will continue to the patient. Departure - Departure Time of Disposition: 00:35 Disposition: DC/Tfer to Acute Hospital 02 Condition: Fair (Stable.) Clinical Impression: Fever of unknown origin Acute renal failure Qualifiers: Acute renal failure type: unspecified Qualified Code(s): N17.9 - Acute kidney failure, unspecified UTI (urinary tract infection) Qualifiers: Urinary tract infection type: site unspecified Hematuria presence: without hematuria Qualified Code(s): N39.0 - Urinary tract infection, site not specified - Discharge Information Referrals: PCP,None [Primary Care Provider] - Forms: ED Department Discharge Sepsis Event Note (ED) - Focused Exam Vital Signs: Vital Signs Temp Pulse Resp BP Pulse Ox 03/05/20 00:23 37.1 C 84 18 135/60 92 L 03/04/20 23:09 37.7 C 82 16 151/53 H 98 03/04/20 20:05 38.2 C H 63 16 128/95 H 100 - My Orders Last 24 Hours: My Active Orders 03/04/20 20:01 EKG 12 Lead [EK] Routine 03/04/20 20:03 Chest 2V [CR] Stat 03/04/20 20:05 Blood Culture x2 Reflex Set [OM.PC] Urgent 03/04/20 21:54 CULTURE URINE [RM] Stat 03/04/20 22:15 Insert Urinary Catheter [OM.PC] Q24H - Assessment/Plan Last 24 Hours: My Active Orders 03/04/20 20:01 EKG 12 Lead [EK] Routine 03/04/20 20:03 Chest 2V [CR] Stat 03/04/20 20:05 Blood Culture x2 Reflex Set [OM.PC] Urgent 03/04/20 21:54 CULTURE URINE [RM] Stat 03/04/20 22:15 Insert Urinary Catheter [OM.PC] Q24H
[2020-03-04] MEDS ORDERED: Acetaminophen 500 MG Tab PO ONE (20:06)
[2020-03-04] MEDS ORDERED: Sodium Chloride 0.9% 1,000 ML IV SCH (22:00)
[2020-03-04] MEDS ORDERED: cefTRIAXone 1 GM Vial IVPUSH ONE (22:30)
[2020-03-04] MEDS ORDERED: Acetaminophen 500 MG Tab ONE (22:37)
[2020-03-05 00:28] VITALS: BP 135/60; PULSE 84
--- NOTE | 2020-03-05 11:09 | CR ---
INDICATION: Weakness, cough. CHEST, TWO VIEWS: PA and lateral views of the chest were obtained 03/04/20 and compared with 03/03/20 and 04/10/13. The heart appears somewhat enlarged compared with the previous study. Upper lung pulmonary vasculature is somewhat less prominent than on the previous study suggesting early resolving CHF. A mild degree of CHF may still remain. Patchy infiltration is noted at the left lung base and possibly minimally at the right lung base which is compatible with pneumonia. These findings appear to be mostly in the left lower lobe. No other change or new acute process was seen. IMPRESSION: 1. Increasing infiltration at the left lower lobe - possible minimal infiltrate at the right lung base. 2. ASHD with residual pulmonary vascular congestion - CHF suggested. 3. Exogenous obesity. 4. 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 MTDD
== END 2020-03-05 00:35 ==
LOC: FB.ED 19:54
DX: N17.9 Acute kidney failure, unspecified (principal); N39.0 Urinary tract infection, site not specified; J45.909 Unspecified asthma, uncomplicated; R56.9 Unspecified convulsions; F31.9 Bipolar disorder, unspecified; E11.9 Type 2 diabetes mellitus without complications; E66.9 Obesity, unspecified; Z68.29 Body mass index [BMI] 29.0-29.9, adult; Z88.1 Allergy status to other antibiotic agents; Z88.6 Allergy status to analgesic agent; Z88.5 Allergy status to narcotic agent; Z88.0 Allergy status to penicillin; Z88.2 Allergy status to sulfonamides; Z79.899 Other long term (current) drug therapy
CPT/HCPCS: 36415; 51702; 51798; 71046; 80053; 81001; 81025; 83735; 85025; 86140; 87086; 87088; 87186; 93005; 96374; 99285-25; A9270-GY; J0696; J7030

== ENCOUNTER 2020-03-12 02:19 | Emergency (ER) | payer MEDICARE, MEDICAID ==
--- NOTE | 2020-03-12 02:50 | EDM.PDOC ---
ED HPI GENERAL MEDICAL PROBLEM - General Stated Complaint: KIDNEY ISSUE Time Seen by Provider: 03/12/20 02:35 Source of Information: Reports: Patient History Limitations: Reports: No Limitations - History of Present Illness INITIAL COMMENTS - FREE TEXT/NARRATIVE: 50-year-old female who recently and vomiting and diarrhea and developed acute renal failure (creatinine of 8.33) related to this and was sent to [facility] (03/04/2020) secondary to this and also fever with UTI and sepsis. She was treated with IV fluids and IV antibiotics and improved and discharged on 03/10/2020 with a creatinine of 3.09. She reports that over the past 2 days she has had pain in her mid back bilaterally with radiation around to her flanks and to her abdomen and has had recurrence of her diarrhea with 4 loose stools that were watery today and has had nausea. She has been drinking good amounts of water despite her nausea. She has had no vomiting. The pain is rated by her as an 8/10. Sharp and aching pain that shoots around. No weakness or dizziness. She does report low-grade fevers over the past 24 hours. She has a chronic cough but no difficulty breathing at this time. While she was admitted last week at [facility], she had a right upper quadrant ultrasound which was normal and a CT scan of her abdomen and pelvis without contrast which did not show any acute process. She also was seen by gastroenterology because of reports of "throwing up blood" and had an EGD which showed no acute abnormality. There are no other associated signs or symptoms. There are no other modifying factors. Onset: Other (03/10/[address] 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) (Nothing except increasing her fluid intake.) Middle Abdominal Pain Score (Numeric/FACES): 8 - Related Data Allergies Allergy/AdvReac Type Severity Reaction Status Date / Time amoxicillin Allergy Other Verified 03/04/20 19:58 aspirin Allergy Hives Verified 03/04/20 19:58 codeine Allergy Hives Verified 03/04/20 19:58 ibuprofen Allergy Nausea and Verified 03/04/20 19:58 Vomiting levofloxacin [From Levaquin] Allergy Airway Verified 03/04/20 19:58 Tightness Penicillins Allergy Other Verified 03/04/20 19:58 Sulfa (Sulfonamide Allergy Airway Verified 03/04/20 19:58 Antibiotics) Tightness Home Meds: Home Meds Cyclobenzaprine [Flexeril] 10 mg PO TID PRN 03/02/13 [History] Fluticasone Propionate [Flovent HFA 44 MCG] 1 puff INH TID PRN 03/02/13 [History] Rizatriptan [Maxalt IT FIELD TECHNICIAN] 10 mg PO ASDIRECTED PRN 03/02/13 [History] lamoTRIgine [Lamotrigine] 100 mg PO BEDTIME 03/02/13 [History] traMADol HCl [Tramadol HCl] 50 mg PO Q8HR PRN 03/02/13 [History] FLUoxetine HCl [Prozac] 20 mg PO BEDTIME 11/04/17 [History] ARIPiprazole [Abilify] 2 mg PO DAILY 01/11/20 [History] Celecoxib [CeleBREX] 200 mg PO DAILY 01/11/20 [History] Levocetirizine Dihydrochloride [Xyzal] 5 mg PO BEDTIME 01/11/20 [History] Meloxicam [Mobic] 15 mg PO BEDTIME 01/11/20 [History] Omeprazole 40 mg PO DAILY 01/11/20 [History] tiZANidine [Zanaflex] 2 mg PO BEDTIME 01/11/20 [History] Ketorolac [Toradol] 10 mg PO TID #15 tab 01/26/20 [Rx] traMADol [Ultram] 100 mg PO Q8H PRN #15 tab 01/26/20 [Rx] Magnesium Oxide 400 mg PO BID 3 Days #6 tablet 03/12/20 [Rx] Past Medical History HEENT History: Reports: Impaired Vision Respiratory History: Reports: Asthma, Bronchitis, Recurrent Gastrointestinal History: Reports: Celiac Disease Neurological History: Reports: Seizure Psychiatric History: Reports: Bipolar Endocrine/Metabolic History: Reports: Diabetes, Type II, Obesity/BMI 30+ Other Endocrine/Metabolic History: States she is borderline diabetic. - Past Surgical History HEENT Surgical History: Reports: Adenoidectomy, Myringotomy w Tube(s), Tonsillectomy Other HEENT Surgeries/Procedures: Tubes in bilateral ears as child. GI Surgical History: Reports: Appendectomy, Cholecystectomy Musculoskeletal Surgical History: Reports: Arthroscopic Knee, ORIF, Other (See Below) Other Musculoskeletal Surgeries/Procedures:: Hx surgery to left foot and right calf. extensive hardware. also has abhilash in back from when she was a child Social & Family History - Family History Cardiac: Reports: CAD, Hypertension Endocrine/Metabolic: Reports: Diabetes, type II Oncologic: Reports: Other (See Below) - Tobacco Use Tobacco Use Status *Q: Unknown Ever Used Tobacco (Nonsmoker.) - Caffeine Use Caffeine Use: Reports: Coffee - Alcohol Use Alcohol Use History: No - Sexual History Other Sexual History Comment: recently with new partner - Living Situation & Occupation Living situation: Reports: Occupation: Employed ED ROS GENERAL - Review of Systems Review Of Systems: See Below Constitutional: Reports: Fever, Malaise HEENT: Reports: No Symptoms Respiratory: Reports: Cough (Chronic cough.) Cardiovascular: Reports: No Symptoms GI/Abdominal: Reports: Abdominal Pain, Diarrhea, Nausea : Reports: Flank Pain (Bilateral flank pain). Denies: Dysuria, Hematuria Musculoskeletal: Reports: Back Pain (Bilateral mid back pain) Skin: Reports: No Symptoms Neurological: Reports: No Symptoms Hematologic/Lymphatic: Reports: No Symptoms Immunologic: Reports: No Symptoms ED EXAM, GENERAL - Physical Exam Exam: See Below Exam Limited By: No Limitations General Appearance: Alert, Obese, Other (Appears in no acute distress and appears nontoxic.) Eye Exam: Bilateral Eye: EOMI, Normal Inspection Ears: Normal External Exam, Hearing Grossly Normal Ear Exam: Bilateral Ear: Auricle Normal Nose: Normal Inspection, Normal Mucosa, No Blood Throat/Mouth: Normal Inspection, Normal Lips, Normal Oropharynx, Normal Voice, No Airway Compromise Head: Atraumatic, Normocephalic Neck: Normal Inspection, Supple, Non-Tender, Full Range of Motion Respiratory/Chest: No Respiratory Distress, Lungs Clear, Normal Breath Sounds, No Accessory Muscle Use, Chest Non-Tender Cardiovascular: Normal Peripheral Pulses, Regular Rate, Rhythm, No Murmur Peripheral Pulses: 2+: Radial (L), Radial (R) GI/Abdominal: Normal Bowel Sounds, Soft, Non-Tender, No Mass, Other (Protuberant.) Back Exam: Normal Inspection, CVA Tenderness (R), CVA Tenderness (L) Extremities: Normal Inspection, Normal Range of Motion, Non-Tender, No Pedal Edema, Normal Capillary Refill Neurological: Alert, Oriented, CN II-XII Intact, Normal Cognition, No Motor/Sensory Deficits Psychiatric: Flat Affect Skin Exam: Warm, Dry, Intact, Normal Color, No Rash #1 Interpretation EKG Date: 03/12/20 Time: 03:19 Rhythm: NSR Rate (Beats/Min): 65 [place]: Normal P-Wave: Present QRS: Normal ST-T: Normal QT: Prolonged (Prolonged QTc.) Comparison: Change From Previous EKG (Since EKG performed on 03/04/2020, ventricular trigeminy has resolved.) Course - Vital Signs Last Recorded V/S: Last Vital Signs Temp 36.8 C 03/12/20 04:35 Pulse 60 03/12/20 04:35 Resp 16 03/12/20 04:35 BP 154/66 H 03/12/20 04:35 Pulse Ox 100 03/12/20 04:35 - Orders/Labs/Meds Orders: Active Orders 24 hr Category Date Time Status EKG Documentation Completion [RC] ASDIRECTED Care 03/12/20 03:04 Active CULTURE URINE [RM] Stat Lab 03/12/20 04:50 Ordered Magnesium Sulfate/Water [Magnesium Sulfate in Water Med 03/12/20 04:30 Active Premix] 2 gm in 50 ml IV ONETIME Sodium Chloride 0.9% [Saline Flush] Med 03/12/20 03:02 Active 10 ml FLUSH ASDIRECTED PRN Peripheral IV Insertion Adult [OM.PC] Routine Oth 03/12/20 03:02 Ordered EKG 12 Lead [EK] Routine Ther 03/12/20 03:02 Ordered Medication Orders Magnesium Sulfate (Magnesium Sulfate In Water Premix) 2 gm in 50 mls @ 50 mls/hr IV ONETIME ONE Stop: 03/12/20 05:29 Last Admin: 03/12/20 04:33 Dose: 50 mls/hr Documented by: SHERLYN Sodium Chloride (Saline Flush) 10 ml FLUSH ASDIRECTED PRN PRN Reason: Keep Vein Open Last Admin: 03/12/20 03:10 Dose: 10 ml Documented by: SHERLYN Labs: Laboratory Tests 03/12/20 03/12/20 03/12/20 Range/Units 03:25 03:35 03:35 WBC 10.6 H (3.0-10.3) x10-3/uL RBC 3.34 L (3.60-5.20) x10(6)uL Hgb 10.0 L D (11.4-15.5) g/dL Hct 29.8 L D (34.2-48.2) % MCV 89.1 (76.7-100.5) fL MCH 29.8 (23.9-33.9) pg MCHC 33.5 (31.9-34.8) g/dL RDW 13.6 (12.3-16.5) % Plt Count 627 H (151-488) x10(3)uL MPV 8.0 (7.1-12.4) fL Neut % (Auto) 79.7 H (30.8-76.2) % Lymph % (Auto) 14.3 L (18.4-52.1) % [place] % (Auto) 4.4 (4.4-15.7) % Eos % (Auto) 0.7 (0.6-8.1) % Baso % (Auto) 0.9 (0.2-1.5) % Neut # (Auto) 8.4 H (1.5-6.3) x10-3/uL Lymph # (Auto) 1.5 (1.0-4.4) x10-3/uL [place] # (Auto) 0.5 (0.3-1.0) x10-3/uL Eos # (Auto) 0.1 (0.0-0.8) x10-3/uL Baso # (Auto) 0.1 (0.0-0.1) x10-3/uL POC VBG pH (7.32-7.43) pH Units POC VBG pCO2 (41-51) mmHg POC VBG HCO3 (21-29) mmol/L VBG Base Excess (-2-3) mmol/L O2 Delivery Device Sodium 139 D (135-145) mmol/L Potassium 3.5 D (3.5-5.3) mmol/L Chloride 102 D (100-110) mmol/L Carbon Dioxide 25 (21-32) mmol/L BUN 11 D (7-18) mg/dL Creatinine 1.9 H (0.55-1.02) mg/dL Est Cr Clr Drug Dosing 28.33 mL/min Estimated GFR (MDRD) 28 L (>60) BUN/Creatinine Ratio 5.8 L (9-20) Glucose 95 (80-116) mg/dL Lactic Acid (0.4-2.0) mmol/L Calcium 7.9 L (8.6-10.2) mg/dL Magnesium 1.3 L (1.8-2.5) mg/dL Total Bilirubin 0.4 (0.1-1.3) mg/dL AST 36 H D (5-25) IU/L ALT 31 D (12-36) U/L Alkaline Phosphatase 129 H (56-112) IU/L C-Reactive Protein (0.5-0.9) mg/dL Total Protein 7.5 (6.0-8.0) g/dL Albumin 2.2 L (3.5-5.2) g/dL Globulin 5.3 g/dL Albumin/Globulin Ratio 0.4 Urine Color Yellow (YELLOW) Urine Appearance Clear (CLEAR) Urine pH 6.0 (5.0-6.5) Ur Specific [place] 1.015 (1.010-1.025) Urine Protein Negative (NEGATIVE) mg/dL Urine Glucose (UA) Normal (NORMAL) mg/dL Urine Ketones Negative (NEGATIVE) mg/dL Urine Occult Blood Large H (NEGATIVE) Urine Nitrite Negative (NEGATIVE) Urine Bilirubin Negative (NEGATIVE) Urine Urobilinogen Normal (NEGATIVE) mg/dL Ur Leukocyte Esterase Negative (NEGATIVE) Urine RBC 5-10 H (0-5) Urine WBC 0-5 (0-5) Ur Squamous Epith Cells Few H (NS,R,O) Urine Bacteria Few H (NS) Urine Mucus Few H (NS) 03/12/20 03/12/20 03/12/20 Range/Units 03:35 03:35 03:35 WBC (3.0-10.3) x10-3/uL RBC (3.60-5.20) x10(6)uL Hgb (11.4-15.5) g/dL Hct (34.2-48.2) % MCV (76.7-100.5) fL MCH (23.9-33.9) pg MCHC (31.9-34.8) g/dL RDW (12.3-16.5) % Plt Count (151-488) x10(3)uL MPV (7.1-12.4) fL Neut % (Auto) (30.8-76.2) % Lymph % (Auto) (18.4-52.1) % [place] % (Auto) (4.4-15.7) % Eos % (Auto) (0.6-8.1) % Baso % (Auto) (0.2-1.5) % Neut # (Auto) (1.5-6.3) x10-3/uL Lymph # (Auto) (1.0-4.4) x10-3/uL [place] # (Auto) (0.3-1.0) x10-3/uL Eos # (Auto) (0.0-0.8) x10-3/uL Baso # (Auto) (0.0-0.1) x10-3/uL POC VBG pH 7.53 H (7.32-7.43) pH Units POC VBG pCO2 30 L (41-51) mmHg POC VBG HCO3 25 (21-29) mmol/L VBG Base Excess 2 (-2-3) mmol/L O2 Delivery Device Room air Sodium (135-145) mmol/L Potassium (3.5-5.3) mmol/L Chloride (100-110) mmol/L Carbon Dioxide (21-32) mmol/L BUN (7-18) mg/dL Creatinine (0.55-1.02) mg/dL Est Cr Clr Drug Dosing mL/min Estimated GFR (MDRD) (>60) BUN/Creatinine Ratio (9-20) Glucose (80-116) mg/dL Lactic Acid 0.6 (0.4-2.0) mmol/L Calcium (8.6-10.2) mg/dL Magnesium (1.8-2.5) mg/dL Total Bilirubin (0.1-1.3) mg/dL AST (5-25) IU/L ALT (12-36) U/L Alkaline Phosphatase (56-112) IU/L C-Reactive Protein 10.6 H* (0.5-0.9) mg/dL Total Protein (6.0-8.0) g/dL Albumin (3.5-5.2) g/dL Globulin g/dL Albumin/Globulin Ratio Urine Color (YELLOW) Urine Appearance (CLEAR) Urine pH (5.0-6.5) Ur Specific [place] (1.010-1.025) Urine Protein (NEGATIVE) mg/dL Urine Glucose (UA) (NORMAL) mg/dL Urine Ketones (NEGATIVE) mg/dL Urine Occult Blood (NEGATIVE) Urine Nitrite (NEGATIVE) Urine Bilirubin (NEGATIVE) Urine Urobilinogen (NEGATIVE) mg/dL Ur Leukocyte Esterase (NEGATIVE) Urine RBC (0-5) Urine WBC (0-5) Ur Squamous Epith Cells (NS,R,O) Urine Bacteria (NS) Urine Mucus (NS) Meds: Medications Generic Name Dose Route Start Last Admin Trade Name Frejen PRN Reason Stop Dose Admin Magnesium Sulfate 2 gm in 50 mls @ 50 mls/hr 03/12/20 04:30 03/12/20 04:33 Magnesium Sulfate In Water Premix IV 03/12/20 05:29 50 mls/hr ONETIME ONE Administration Sodium Chloride 10 ml 03/12/20 03:02 03/12/20 03:10 Saline Flush FLUSH 10 ml ASDIRECTED PRN Administration Keep Vein Open Discontinued Medications Generic Name Dose Route Start Last Admin Trade Name Freq PRN Reason Stop Dose Admin Magnesium Sulfate Confirm 03/12/20 04:25 03/12/20 04:30 Magnesium Sulfate In Water Premix Administered 03/12/20 04:26 Not Given Dose 2 gm in 50 mls @ as directed .ROUTE .STK-MED ONE - Re-Assessments/Exams Free Text/Narrative Re-Assessment/Exam: 03/12/20 04:40: Patient remains hemodynamically stable. Her repeat labs show a creatinine which is now dropped to 1.9 from 3.03 at discharge from [facility] on 03/10/2020. Her magnesium was 1.3. Her urinalysis showed no definite evidence of infection (it did have some blood in it but she has just started her menses). I have giving her magnesium 2 g IV now. She appears stable for discharge at this point. She is scheduled to see a aerophysicist next Sunday. I will give her magnesium oxide 400 mg twice daily for 3 days. She has Reglan at home that she can take for nausea. She should continue to increase her fluid intake. Precautions and reasons for return to the emergency department were discussed with the patient while she was in the emergency department and were detailed in her discharge instructions. Departure - Departure Time of Disposition: 05:30 Disposition: Home, Self-Care 01 Condition: Good Clinical Impression: Hypomagnesemia Back pain Qualifiers: Back pain location: back pain in unspecified location Chronicity: unspecified Back pain laterality: bilateral Qualified Code(s): M54.9 - Dorsalgia, unspecified - Discharge Information Prescriptions: Magnesium Oxide 400 mg PO BID 3 Days #6 tablet Instructions: Hypomagnesemia Referrals: Vicki Mirza NP [Nurse Practitioner] - Additional Instructions: Your blood tests did show that your kidney function had improved. Your magnesium was low. We give you additional magnesium in your IV and also orally. Your urine test does not show any definite evidence of infection at this time. You need to continue to increase your food intake. You can take Tylenol 1000 mg by mouth every 6 hours as needed for pain. Medication as prescribed (magnesium oxide 400 mg). This prescription was sent electronically to pharmacy. Keep the appointment with your kidney specialist this coming week. Back to the emergency department for unrelenting vomiting, high fever, severe weakness or any other concerning sign or symptom. Sepsis Event Note (ED) - Evaluation Sepsis Screening Result: No Definite Risk - Focused Exam Vital Signs: Vital Signs Temp Pulse Resp BP Pulse Ox 03/12/20 04:35 36.8 C 60 16 154/66 H 100 03/12/20 02:35 36.6 C 72 18 177/88 H 94 L - My Orders Last 24 Hours: My Active Orders 03/12/20 03:02 Sodium Chloride 0.9% [Saline Flush] 10 ml FLUSH ASDIRECTED PRN Peripheral IV Insertion Adult [OM.PC] Routine EKG 12 Lead [EK] Routine 03/12/20 03:04 EKG Documentation Completion [RC] ASDIRECTED 03/12/20 04:30 Magnesium Sulfate/Water [Magnesium Sulfate in Water Premix] 2 gm in 50 ml IV ONETIME 03/12/20 04:50 CULTURE URINE [RM] Stat - Assessment/Plan Last 24 Hours: My Active Orders 03/12/20 03:02 Sodium Chloride 0.9% [Saline Flush] 10 ml FLUSH ASDIRECTED PRN Peripheral IV Insertion Adult [OM.PC] Routine EKG 12 Lead [EK] Routine 03/12/20 03:04 EKG Documentation Completion [RC] ASDIRECTED 03/12/20 04:30 Magnesium Sulfate/Water [Magnesium Sulfate in Water Premix] 2 gm in 50 ml IV ONETIME 03/12/20 04:50 CULTURE URINE [RM] Stat
[2020-03-12] MEDS ORDERED: Sodium Chloride 0.9% 10 ML Syringe FLUSH PRN (03:02)
[2020-03-12 04:10] LABS: PH VENOUS,POC 7.53 pH Units (7.32-7.43)
[2020-03-12 04:11] LABS: BASE EXCESS VENOUS,POC 2 mmol/L (-2-3); HCO3 VENOUS,POC 25 mmol/L (21-29); PCO2 VENOUS,POC 30 mmHg (41-51)
[2020-03-12] MEDS ORDERED: Magnesium Sulfate/Water 2 GM/50 ML BAG ONE (04:25)
[2020-03-12] MEDS ORDERED: Magnesium Sulfate/Water 2 GM/50 ML BAG IV ONE (04:30)
[2020-03-12] MEDS ORDERED: Magnesium Oxide 400 MG Tab PO ONE (05:14)
[2020-03-12 06:35] VITALS: BP 152/74; PULSE 62
== END 2020-03-12 06:05 | disposition home or self-care (01) ==
LOC: FB.ED 02:19
DX: M54.6 Pain in thoracic spine (principal); E83.42 Hypomagnesemia; J45.909 Unspecified asthma, uncomplicated; F31.9 Bipolar disorder, unspecified; E11.9 Type 2 diabetes mellitus without complications; E66.9 Obesity, unspecified; Z68.36 Body mass index [BMI] 36.0-36.9, adult; Z88.1 Allergy status to other antibiotic agents; Z88.8 Allergy status to other drugs, medicaments and biological substances; Z88.5 Allergy status to narcotic agent; Z88.6 Allergy status to analgesic agent; Z88.0 Allergy status to penicillin; Z88.2 Allergy status to sulfonamides; Z79.899 Other long term (current) drug therapy
CPT/HCPCS: 36415; 80053; 81001; 83605; 83735; 85025; 86140; 87086; 93005; 96365; 99284; A9270; J3475

== ENCOUNTER 2020-03-23 23:56 | Emergency (ER) | payer MEDICARE, MEDICAID ==
[2020-03-23] MEDS ORDERED: Ciprofloxacin 500 MG Tab PO ONE (23:57)
--- NOTE | 2020-03-24 01:19 | EDM.PDOC ---
ED HPI GENERAL MEDICAL PROBLEM - General Chief Complaint: Genitourinary Problem Stated Complaint: KIDNEY STONES Time Seen by Provider: 03/24/20 00:20 Source of Information: Reports: Patient History Limitations: Reports: No Limitations - History of Present Illness INITIAL COMMENTS - FREE TEXT/NARRATIVE: Patient presented to the ED because of dysuria, urgency, and frequency for 2 days. there is no associated, fever, chills, N/V or flank pain. left flank Pain Score (Numeric/FACES): 7 - Related Data Allergies Allergy/AdvReac Type Severity Reaction Status Date / Time amoxicillin Allergy Other Verified 03/04/20 19:58 aspirin Allergy Hives Verified 03/04/20 19:58 codeine Allergy Hives Verified 03/04/20 19:58 ibuprofen Allergy Nausea and Verified 03/04/20 19:58 Vomiting influenza virus vaccine qs Allergy Other Verified 03/24/20 00:54 [id number] (36 mos, up) [From Fluarix Quad] levofloxacin [From Levaquin] Allergy Airway Verified 03/04/20 19:58 Tightness Penicillins Allergy Other Verified 03/04/20 19:58 sodium bicarbonate Allergy Shaking Verified 03/24/20 00:55 Sulfa (Sulfonamide Allergy Airway Verified 03/04/20 19:58 Antibiotics) Tightness Home Meds: Home Meds Cyclobenzaprine [Flexeril] 10 mg PO TID PRN 03/02/13 [History] Fluticasone Propionate [Flovent HFA 44 MCG] 1 puff INH TID PRN 03/02/13 [History] Rizatriptan [Maxalt PARKING LOT ATTENDANT] 10 mg PO ASDIRECTED PRN 03/02/13 [History] lamoTRIgine [Lamotrigine] 100 mg PO BEDTIME 03/02/13 [History] traMADol HCl [Tramadol HCl] 50 mg PO Q8HR PRN 03/02/13 [History] FLUoxetine HCl [Prozac] 20 mg PO BEDTIME 11/04/17 [History] ARIPiprazole [Abilify] 2 mg PO DAILY 01/11/20 [History] Celecoxib [CeleBREX] 200 mg PO DAILY 01/11/20 [History] Levocetirizine Dihydrochloride [Xyzal] 5 mg PO BEDTIME 01/11/20 [History] Meloxicam [Mobic] 15 mg PO BEDTIME 01/11/20 [History] Omeprazole 40 mg PO DAILY 01/11/20 [History] tiZANidine [Zanaflex] 2 mg PO BEDTIME 01/11/20 [History] Ketorolac [Toradol] 10 mg PO TID #15 tab 01/26/20 [Rx] traMADol [Ultram] 100 mg PO Q8H PRN #15 tab 01/26/20 [Rx] Magnesium Oxide 400 mg PO BID 3 Days #6 tablet 03/12/20 [Rx] Past Medical History HEENT History: Reports: Impaired Vision Respiratory History: Reports: Asthma, Bronchitis, Recurrent Gastrointestinal History: Reports: Celiac Disease Genitourinary History: Reports: Renal Calculus, Other (See Below) Other Genitourinary History: Kidney Disease 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 - Past Surgical History HEENT Surgical History: Reports: Adenoidectomy, Myringotomy w Tube(s), Tonsillectomy Other HEENT Surgeries/Procedures: Tubes in bilateral ears as child. GI Surgical History: Reports: Appendectomy, Cholecystectomy Musculoskeletal Surgical History: Reports: Arthroscopic Knee, ORIF, Other (See Below) Other Musculoskeletal Surgeries/Procedures:: Hx surgery to left foot and right calf. extensive hardware. also has abhilash in back from when she was a child Social & Family History - Family History Family Medical History: No Pertinent Family History Cardiac: Reports: CAD, Hypertension Endocrine/Metabolic: Reports: Diabetes, type II Oncologic: Reports: Other (See Below) - Tobacco Use Tobacco Use Status *Q: Former Tobacco User Used Tobacco, but Quit: Yes Month/Year Tobacco Last Used: February - Caffeine Use Caffeine Use: Reports: Soda - Recreational Drug Use Recreational Drug Use: No - Sexual History Other Sexual History Comment: recently with new partner - Living Situation & Occupation Living situation: Reports: Occupation: Employed ED ROS GENERAL - Review of Systems Review Of Systems: See Below Constitutional: Reports: No Symptoms HEENT: Reports: No Symptoms Respiratory: Reports: No Symptoms Cardiovascular: Reports: No Symptoms Endocrine: Reports: No Symptoms GI/Abdominal: Reports: No Symptoms : Reports: Dysuria, Urgency. Denies: Flank Pain Musculoskeletal: Reports: No Symptoms Skin: Reports: No Symptoms ED EXAM, RENAL/ - Physical Exam Exam: See Below Exam Limited By: No Limitations General Appearance: Alert, No Apparent Distress Eye Exam: Bilateral Eye: Proptosis Ears: Normal External Exam, Normal Canal Nose: Normal Inspection, Normal Mucosa Throat/Mouth: Normal Inspection Head: Atraumatic, Normocephalic Respiratory/Chest: No Respiratory Distress, Lungs Clear, Normal Breath Sounds Cardiovascular: Normal Peripheral Pulses, Regular Rate, Rhythm, No Edema, No Gallop GI/Abdominal: Normal Bowel Sounds, Soft, Other (suprapubic tenderness) Back Exam: Normal Inspection, Full Range of Motion Course - Vital Signs Last Recorded V/S: Last Vital Signs Temp 35.9 C L 03/24/20 00:15 Pulse 56 L 03/24/20 01:30 Resp 17 03/24/20 01:30 BP 129/79 03/24/20 01:30 Pulse Ox 96 03/24/20 01:30 - Orders/Labs/Meds Orders: Active Orders 24 hr Category Date Time Status CULTURE URINE [RM] Stat Lab 03/24/20 00:10 Received Labs: Laboratory Tests 03/24/20 Range/Units 00:10 Urine Color Yellow (YELLOW) Urine Appearance Slightly cloudy (CLEAR) Urine pH 7.0 H (5.0-6.5) Ur Specific [place] 1.005 L (1.010-1.025) Urine Protein Negative (NEGATIVE) mg/dL Urine Glucose (UA) Normal (NORMAL) mg/dL Urine Ketones Negative (NEGATIVE) mg/dL Urine Occult Blood Negative (NEGATIVE) Urine Nitrite Negative (NEGATIVE) Urine Bilirubin Negative (NEGATIVE) Urine Urobilinogen Normal (NEGATIVE) mg/dL Ur Leukocyte Esterase Large H (NEGATIVE) Urine RBC 0-5 (0-5) Urine WBC 40-50 H (0-5) Ur Squamous Epith Cells Moderate H (NS,R,O) Urine Bacteria Moderate H (NS) Urine Mucus Few H (NS) Departure - Departure Time of Disposition: : Disposition: Home, Self-Care 01 Condition: Good Clinical Impression: UTI (urinary tract infection) - Discharge Information Instructions: Urinary Tract Infection, Adult, [id number] Referrals: Vicki Mirza NP [Primary Care Provider] - Forms: ED Department Discharge Additional Instructions: Please read discharge instructions on UTI Increase oral fluids Cipro 500 mg 2 times daily for 5 days Follow up as needed Sepsis Event Note (ED) - Evaluation Sepsis Screening Result: No Definite Risk - Focused Exam Vital Signs: Vital Signs Temp Pulse Resp BP Pulse Ox 03/24/20 01:30 56 L 17 129/79 96 03/24/20 00:15 35.9 C L 81 17 130/61 97 - My Orders Last 24 Hours: My Active Orders 03/24/20 00:10 CULTURE URINE [RM] Stat - Assessment/Plan Last 24 Hours: My Active Orders 03/24/20 00:10 CULTURE URINE [RM] Stat
[2020-03-24 01:36] VITALS: BP 129/79; PULSE 56
== END 2020-03-24 01:36 | disposition home or self-care (01) ==
LOC: FB.ED 23:56
DX: N39.0 Urinary tract infection, site not specified (principal); E11.9 Type 2 diabetes mellitus without complications; E66.9 Obesity, unspecified; J45.909 Unspecified asthma, uncomplicated; F31.9 Bipolar disorder, unspecified; Z88.1 Allergy status to other antibiotic agents; Z88.5 Allergy status to narcotic agent; Z88.6 Allergy status to analgesic agent; Z88.7 Allergy status to serum and vaccine; Z88.0 Allergy status to penicillin; Z88.2 Allergy status to sulfonamides; Z88.8 Allergy status to other drugs, medicaments and biological substances; Z90.49 Acquired absence of other specified parts of digestive tract; Z79.899 Other long term (current) drug therapy; Z87.891 Personal history of nicotine dependence; Z68.41 Body mass index [BMI] 40.0-44.9, adult
CPT/HCPCS: 81001; 87086; 99283; A9270-GY

== ENCOUNTER 2020-04-07 14:02 | Emergency (ER) | payer MEDICARE, MEDICAID ==
[2020-04-07] MEDS ORDERED: Sodium Chloride 0.9% 10 ML Syringe FLUSH PRN (14:21)
--- NOTE | 2020-04-07 15:42 | CR ---
INDICATION: Dyspnea. CHEST ONE VIEW: A single AP upright portable view of the chest was obtained 04/07/20 and compared with 03/04/20 and 03/03/20. The infiltration seen at the left lung base on the previous study apparently has resolved. The heart did not appear enlarged. The pulmonary vasculature appears less prominent than on the previous study suggesting resolution of previous CHF or pulmonary vascular congestion of other etiology. A definite active infiltrate or effusion was not identified on the current study. IMPRESSION: 1. No acute process. 2. Exogenous obesity. MTDD
[2020-04-07] MEDS ORDERED: Ondansetron 4 MG/2 ML SDV IVPUSH ONE (15:46)
[2020-04-07] MEDS ORDERED: Labetalol 20 MG/4 ML Syringe IVPUSH ONE (17:30)
[2020-04-07] MEDS ORDERED: Cefuroxime 250 MG Tab PO STA (21:12)
[2020-04-07 21:25] VITALS: BP 137/69; PULSE 100
--- NOTE | 2020-04-07 21:28 | EDM.PDOC ---
ED HPI GENERAL MEDICAL PROBLEM - General Chief Complaint: General Time Seen by Provider: 04/07/20 14:25 Source of Information: Reports: Patient History Limitations: Reports: No Limitations - History of Present Illness INITIAL COMMENTS - FREE TEXT/NARRATIVE: Patient presented to the ED because of non-productive cough, dyspnea inspite of having a 100% oxygen saturation. She also c/o increasing facial and bilateral LE edema. 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 She will have a fistula on 04/23/2020. Lower Posterior Back Pain Score (Numeric/FACES): 2 - Related Data Allergies Allergy/AdvReac Type Severity Reaction Status Date / Time amoxicillin Allergy Other Verified 04/07/20 19:18 aspirin Allergy Hives Verified 04/07/20 19:18 codeine Allergy Hives Verified 04/07/20 19:18 ibuprofen Allergy Nausea and Verified 04/07/20 19:18 Vomiting influenza virus vaccine qs Allergy Other Verified 04/07/20 19:18 [id number] (36 mos, up) [From Fluarix Quad] levofloxacin [From Levaquin] Allergy Airway Verified 04/07/20 19:18 Tightness Penicillins Allergy Other Verified 04/07/20 19:18 sodium bicarbonate Allergy Shaking Verified 04/07/20 19:18 Sulfa (Sulfonamide Allergy Airway Verified 04/07/20 19:18 Antibiotics) Tightness Home Meds: Home Meds Cyclobenzaprine [Flexeril] 10 mg PO TID PRN 03/02/13 [History] Fluticasone Propionate [Flovent HFA 44 MCG] 1 puff INH TID PRN 03/02/13 [History] Rizatriptan [Maxalt MONOMER PURIFICATION OPERATOR] 10 mg PO ASDIRECTED PRN 03/02/13 [History] lamoTRIgine [Lamotrigine] 100 mg PO BEDTIME 03/02/13 [History] traMADol HCl [Tramadol HCl] 50 mg PO Q8HR PRN 03/02/13 [History] FLUoxetine HCl [Prozac] 20 mg PO BEDTIME 11/04/17 [History] ARIPiprazole [Abilify] 2 mg PO DAILY 01/11/20 [History] Celecoxib [CeleBREX] 200 mg PO DAILY 01/11/20 [History] Levocetirizine Dihydrochloride [Xyzal] 5 mg PO BEDTIME 01/11/20 [History] Meloxicam [Mobic] 15 mg PO BEDTIME 01/11/20 [History] Omeprazole 40 mg PO DAILY 01/11/20 [History] tiZANidine [Zanaflex] 2 mg PO BEDTIME 01/11/20 [History] Ketorolac [Toradol] 10 mg PO TID #15 tab 01/26/20 [Rx] traMADol [Ultram] 100 mg PO Q8H PRN #15 tab 01/26/20 [Rx] Magnesium Oxide 400 mg PO BID 3 Days #6 tablet 03/12/20 [Rx] Cefuroxime Axetil [Ceftin] 500 mg PO BID #6 tablet 04/07/20 [Rx] Past Medical History HEENT History: Reports: Impaired Vision Respiratory History: Reports: Asthma, Bronchitis, Recurrent Gastrointestinal History: Reports: Celiac Disease Genitourinary History: Reports: Renal Calculus, Other (See Below) Other Genitourinary History: 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 - Past Surgical History HEENT Surgical History: Reports: Adenoidectomy, Myringotomy w Tube(s), Tonsillectomy Other HEENT Surgeries/Procedures: Tubes in bilateral ears as child. GI Surgical History: Reports: Appendectomy, Cholecystectomy Musculoskeletal Surgical History: Reports: Arthroscopic Knee, ORIF, Other (See Below) Other Musculoskeletal Surgeries/Procedures:: Hx surgery to left foot and right calf. extensive hardware. also has abhilash in back from when she was a child Social & Family History - Family History Family Medical History: No Pertinent Family History Cardiac: Reports: CAD, Hypertension Endocrine/Metabolic: Reports: Diabetes, type II Oncologic: Reports: Other (See Below) - Tobacco Use Tobacco Use Status *Q: Unknown Ever Used Tobacco - Caffeine Use Caffeine Use: Reports: None - Sexual History Other Sexual History Comment: recently with new partner - Living Situation & Occupation Living situation: Reports: Occupation: Employed ED ROS GENERAL - Review of Systems Review Of Systems: See Below Constitutional: Reports: Chills, Malaise HEENT: Reports: No Symptoms Respiratory: Reports: Shortness of Breath, Cough, Sputum Cardiovascular: Reports: No Symptoms Endocrine: Reports: No Symptoms GI/Abdominal: Reports: No Symptoms : Reports: No Symptoms Musculoskeletal: Reports: No Symptoms Skin: Reports: No Symptoms ED EXAM, GENERAL - Physical Exam Exam: See Below Exam Limited By: No Limitations General Appearance: Alert, No Apparent Distress Ears: Normal External Exam, Normal Canal, Hearing Grossly Normal Nose: Normal Inspection, Normal Mucosa, No Blood Throat/Mouth: Normal Inspection, Normal Lips, Normal Teeth Head: Atraumatic, Normocephalic Neck: Normal Inspection, Supple, Non-Tender Respiratory/Chest: No Respiratory Distress, Lungs Clear, Normal Breath Sounds Cardiovascular: Normal Peripheral Pulses, Regular Rate, Rhythm, No Edema, No Gallop GI/Abdominal: Normal Bowel Sounds, Soft, Non-Tender, No Organomegaly Back Exam: Normal Inspection, Full Range of Motion Extremities: Pedal Edema Neurological: Alert, Oriented, CN II-XII Intact, Normal Cognition Psychiatric: Anxious Skin Exam: Warm Course - Vital Signs Text/Narrative:: Labs/EKG/CXR result was discussed with patient COVID-negative Zofran 4 mg ODT Ceftin 500 mg po x1 Last Recorded V/S: Last Vital Signs Temp 36.8 C 04/07/20 21:24 Pulse 100 04/07/20 21:24 Resp 18 04/07/20 21:24 BP 137/69 04/07/20 21:24 Pulse Ox 99 04/07/20 21:24 - Orders/Labs/Meds Orders: Active Orders 24 hr Category Date Time Status CULTURE URINE [RM] Stat Lab 04/07/20 15:30 Received Saline Lock Insert [OM.PC] Routine Oth 04/07/20 14:21 Ordered EKG 12 Lead [EK] Routine Ther 04/07/20 14:21 Ordered Labs: Laboratory Tests 04/07/20 04/07/20 04/07/20 Range/Units 15:42 18:00 18:00 WBC 7.7 (3.0-10.3) x10-3/uL RBC 3.98 (3.60-5.20) x10(6)uL Hgb 11.8 (11.4-15.5) g/dL Hct 36.0 (34.2-48.2) % MCV 90.7 (76.7-100.5) fL MCH 29.7 (23.9-33.9) pg MCHC 32.7 (31.9-34.8) g/dL RDW 14.4 (12.3-16.5) % Plt Count 203 (151-488) x10(3)uL MPV 9.9 (7.1-12.4) fL Neut % (Auto) 52.3 (30.8-76.2) % Lymph % (Auto) 40.5 (18.4-52.1) % [place] % (Auto) 5.8 (4.4-15.7) % Eos % (Auto) 0.7 (0.6-8.1) % Baso % (Auto) 0.7 (0.2-1.5) % Neut # (Auto) 4.0 (1.5-6.3) x10-3/uL Lymph # (Auto) 3.1 (1.0-4.4) x10-3/uL Marion # (Auto) 0.5 (0.3-1.0) x10-3/uL Eos # (Auto) 0.1 (0.0-0.8) x10-3/uL Baso # (Auto) 0.1 (0.0-0.1) x10-3/uL PT 10.7 (9.0-11.1) sec INR 0.99 L (1.00-1.24) APTT 25.3 (24.4-33.2) SECONDS Sodium (135-145) mmol/L Potassium (3.5-5.3) mmol/L Chloride (100-110) mmol/L Carbon Dioxide (21-32) mmol/L BUN (7-18) mg/dL Creatinine (0.55-1.02) mg/dL Est Cr Clr Drug Dosing mL/min Estimated GFR (MDRD) (>60) BUN/Creatinine Ratio (9-20) Glucose (80-116) mg/dL Calcium (8.6-10.2) mg/dL Total Bilirubin (0.1-1.3) mg/dL AST (5-25) IU/L ALT (12-36) U/L Alkaline Phosphatase (56-112) IU/L Troponin I (4.0-60.3) pg/mL NT-Pro-B Natriuret Pep (<=125) pg/mL Total Protein (6.0-8.0) g/dL Albumin (3.5-5.2) g/dL Globulin g/dL Albumin/Globulin Ratio Urine Color Yellow (YELLOW) Urine Appearance Slightly cloudy (CLEAR) Urine pH 6.0 (5.0-6.5) Ur Specific [place] 1.005 L (1.010-1.025) Urine Protein Negative (NEGATIVE) mg/dL Urine Glucose (UA) Normal (NORMAL) mg/dL Urine Ketones Negative (NEGATIVE) mg/dL Urine Occult Blood Negative (NEGATIVE) Urine Nitrite Negative (NEGATIVE) Urine Bilirubin Negative (NEGATIVE) Urine Urobilinogen Normal (NEGATIVE) mg/dL Ur Leukocyte Esterase Large H (NEGATIVE) Urine RBC 0-5 (0-5) Urine WBC 5-10 H (0-5) Ur Squamous Epith Cells Few H (NS,R,O) Urine Bacteria Few H (NS) SARS-CoV-2 RNA (AMAURI) (NEGATIVE) 04/07/20 04/07/20 04/07/20 Range/Units 18:00 18:15 20:00 WBC (3.0-10.3) x10-3/uL RBC (3.60-5.20) x10(6)uL Hgb (11.4-15.5) g/dL Hct (34.2-48.2) % MCV (76.7-100.5) fL MCH (23.9-33.9) pg MCHC (31.9-34.8) g/dL RDW (12.3-16.5) % Plt Count (151-488) x10(3)uL MPV (7.1-12.4) fL Neut % (Auto) (30.8-76.2) % Lymph % (Auto) (18.4-52.1) % Marion % (Auto) (4.4-15.7) % Eos % (Auto) (0.6-8.1) % Baso % (Auto) (0.2-1.5) % Neut # (Auto) (1.5-6.3) x10-3/uL Lymph # (Auto) (1.0-4.4) x10-3/uL Marion # (Auto) (0.3-1.0) x10-3/uL Eos # (Auto) (0.0-0.8) x10-3/uL Baso # (Auto) (0.0-0.1) x10-3/uL PT (9.0-11.1) sec INR (1.00-1.24) APTT (24.4-33.2) SECONDS Sodium 142 (135-145) mmol/L Potassium 3.4 L (3.5-5.3) mmol/L Chloride 102 (100-110) mmol/L Carbon Dioxide 27 (21-32) mmol/L BUN 10 (7-18) mg/dL Creatinine 1.4 H (0.55-1.02) mg/dL Est Cr Clr Drug Dosing 43.74 mL/min Estimated GFR (MDRD) 40 L (>60) BUN/Creatinine Ratio 7.1 L (9-20) Glucose 105 (80-116) mg/dL Calcium 9.1 (8.6-10.2) mg/dL Total Bilirubin 0.3 (0.1-1.3) mg/dL AST 21 D (5-25) IU/L ALT 22 D (12-36) U/L Alkaline Phosphatase 135 H (56-112) IU/L Troponin I 6.8 (4.0-60.3) pg/mL NT-Pro-B Natriuret Pep 141 H (<=125) pg/mL Total Protein 8.1 H (6.0-8.0) g/dL Albumin 3.5 (3.5-5.2) g/dL Globulin 4.6 g/dL Albumin/Globulin Ratio 0.8 Urine Color (YELLOW) Urine Appearance (CLEAR) Urine pH (5.0-6.5) Ur Specific [place] (1.010-1.025) Urine Protein (NEGATIVE) mg/dL Urine Glucose (UA) (NORMAL) mg/dL Urine Ketones (NEGATIVE) mg/dL Urine Occult Blood (NEGATIVE) Urine Nitrite (NEGATIVE) Urine Bilirubin (NEGATIVE) Urine Urobilinogen (NEGATIVE) mg/dL Ur Leukocyte Esterase (NEGATIVE) Urine RBC (0-5) Urine WBC (0-5) Ur Squamous Epith Cells (NS,R,O) Urine Bacteria (NS) SARS-CoV-2 RNA (AMAURI) Negative (NEGATIVE) Meds: Medications Discontinued Medications Generic Name Dose Route Start Last Admin Trade Name Freq PRN Reason Stop Dose Admin Cefuroxime Axetil 500 mg 12/23/20 21:12 04/07/20 21:15 Ceftin PO 04/07/20 21:13 500 mg NOW STA Administration Labetalol HCl 10 mg 04/07/20 17:30 04/07/20 17:33 Normodyne IVPUSH 04/07/20 17:31 10 mg ONETIME ONE Administration Protocol Ondansetron HCl 4 mg 04/07/20 15:46 Zofran IVPUSH 04/07/20 15:47 ONETIME ONE Sodium Chloride 10 ml 04/07/20 14:21 04/07/20 17:34 Saline Flush FLUSH 10 ml ASDIRECTED PRN Administration Keep Vein Open Departure - Departure Time of Disposition: 22:00 Disposition: Home, Self-Care 01 Condition: Good Clinical Impression: UTI (urinary tract infection), CKD (chronic kidney disease) - Discharge Information Prescriptions: Cefuroxime Axetil [Ceftin] 500 mg PO BID #6 tablet Instructions: Urinary Tract Infection, Adult Referrals: Vicki Mirza TUBE BALANCER [Primary Care Provider] - Forms: ED Department Discharge Additional Instructions: Please read discharge on UTI Ceftin twice daily for 3 days Keep yor appointment to see the Clerical Proofreader as scheduled Sepsis Event Note (ED) - Evaluation Sepsis Screening Result: No Definite Risk - Focused Exam Vital Signs: Vital Signs Temp Pulse Resp BP Pulse Ox 04/07/20 21:24 36.8 C 100 18 137/69 99 04/07/20 18:38 67 14 148/71 H 100 04/07/20 14:17 36.8 C 58 L 16 180/87 H 100 - My Orders Last 24 Hours: My Active Orders 04/07/20 14:21 Saline Lock Insert [OM.PC] Routine EKG 12 Lead [EK] Routine 04/07/20 15:30 CULTURE URINE [RM] Stat - Assessment/Plan Last 24 Hours: My Active Orders 04/07/20 14:21 Saline Lock Insert [OM.PC] Routine EKG 12 Lead [EK] Routine 04/07/20 15:30 CULTURE URINE [RM] Stat
== END 2020-04-07 22:15 | disposition home or self-care (01) ==
LOC: FB.ED 14:02
DX: N39.0 Urinary tract infection, site not specified (principal); N18.9 Chronic kidney disease, unspecified; E11.22 Type 2 diabetes mellitus with diabetic chronic kidney disease; J45.909 Unspecified asthma, uncomplicated; F31.9 Bipolar disorder, unspecified; R56.9 Unspecified convulsions; E66.9 Obesity, unspecified; Z68.33 Body mass index [BMI] 33.0-33.9, adult; Z20.828 Contact with and (suspected) exposure to other viral communicable diseases; Z88.1 Allergy status to other antibiotic agents; Z88.6 Allergy status to analgesic agent; Z88.5 Allergy status to narcotic agent; Z88.7 Allergy status to serum and vaccine; Z88.0 Allergy status to penicillin; Z88.2 Allergy status to sulfonamides; Z88.8 Allergy status to other drugs, medicaments and biological substances
CPT/HCPCS: 36415; 71045; 80053; 81001; 83880; 84484; 85025; 85610; 85730; 87086; 87088; 87186; 93005; 96374; 99285; A9270; J3490; U0002

== ENCOUNTER 2022-08-07 19:40 | Emergency (ER) | payer MEDICARE, MEDICAID ==
[2022-08-07 20:35] LABS: ESTIMATED GFR 55 mL/min (>60)
[2022-08-07 21:10] LABS: CORONAVIRUS COVID-19 NAA NEGATIVE (NEGATIVE)
[2022-08-07 21:51] VITALS: BP 137/84; PULSE 76
== END 2022-08-07 21:21 | disposition home or self-care (01) ==
LOC: FB.ED 19:40
DX: J06.9 Acute upper respiratory infection, unspecified (principal); J45.909 Unspecified asthma, uncomplicated; E11.9 Type 2 diabetes mellitus without complications; E66.9 Obesity, unspecified; Z20.822 Contact with and (suspected) exposure to COVID-19; Z88.2 Allergy status to sulfonamides; Z79.899 Other long term (current) drug therapy; Z88.0 Allergy status to penicillin; Z88.8 Allergy status to other drugs, medicaments and biological substances; Z88.5 Allergy status to narcotic agent; Z88.6 Allergy status to analgesic agent
CPT/HCPCS: 0240U; 36415; 71045; 80053; 83735; 85025; 99283

== ENCOUNTER 2023-05-16 21:01 | Emergency (ER) | payer MEDICAID, MEDICARE ==
[2023-05-16 21:48] LABS: BASOPHILS PERCENT AUTO 0.8 % (0.2-1.5); EOSINOPHILS ABSOLUTE AUTO 0.1 x10-3/uL (0.0-0.8); EOSINOPHILS PERCENT AUTO 1.5 % (0.6-8.1); HEMATOCRIT 38.6 % (34.2-48.2); HEMOGLOBIN 12.9 g/dL (11.4-15.5); LYMPHOCYTES ABSOLUTE AUTO 1.8 x10-3/uL (1.0-4.4); LYMPHOCYTES PERCENT AUTO 32.1 % (18.4-52.1); MEAN CORPUSCULAR HEMOGLOBIN 29.6 pg (23.9-33.9); MEAN CORPUSCULAR HGB CONC 33.4 g/dL (31.9-34.8); MEAN CORPUSCULAR VOLUME 88.6 fL (76.7-100.5); MEAN PLATELET VOLUME 8.6 fL (7.1-12.4); MONOCYTES ABSOLUTE AUTO 0.4 x10-3/uL (0.3-1.0); MONOCYTES PERCENT AUTO 7.6 % (4.4-15.7); NEUTROPHILS ABSOLUTE AUTO 3.3 x10-3/uL (1.5-6.3); PLATELET COUNT,PLT 222 x10(3)uL (151-488); RED BLOOD CELL COUNT 4.36 x10(6)uL (3.60-5.20); RED CELL DISTRIBUTION WIDTH 14.2 % (12.3-16.5); WHITE BLOOD CELL COUNT,WBC 5.7 x10-3/uL (3.0-10.3)
[2023-05-16 21:51] LABS: BLOOD UREA NITROGEN,BUN 16 mg/dL (7-18); BUN/CREATININE RATIO 13.3 (9-20); CALCIUM 8.7 mg/dL (8.6-10.2); CARBON DIOXIDE,CO2 25 mmol/L (21-32); CHLORIDE,CL 104 mmol/L (100-110); CREATININE 1.2 mg/dL (0.55-1.02); EST CRCL DRUG DOSING (CG) 43.37 mL/min; ESTIMATED GFR 54 mL/min (>60); GLUCOSE RANDOM 86 mg/dL (80-116); POTASSIUM,K 3.8 mmol/L (3.5-5.3); SODIUM,NA 137 mmol/L (135-145)
[2023-05-16 21:57] LABS: ALANINE AMINOTRANSFERASE,ALT 24 U/L (12-36); ALBUMIN 3.5 g/dL (3.5-5.2); ALKALINE PHOSPHATASE 144 IU/L (56-112); ASPARTATE AMNIOTRANSFERASE,AST 15 IU/L (5-25); BILIRUBIN TOTAL 0.4 mg/dL (0.1-1.3)
[2023-05-16] MEDS: Loperamide 2 MG Cap PO ONE (22:20)
[2023-05-16 22:55] VITALS: BP 122/78; PULSE 68
== END 2023-05-16 22:24 | disposition home or self-care (01) ==
LOC: FB.ED 21:01
DX: K52.9 Noninfective gastroenteritis and colitis, unspecified (principal); J45.909 Unspecified asthma, uncomplicated; E66.9 Obesity, unspecified; E11.9 Type 2 diabetes mellitus without complications; Z88.2 Allergy status to sulfonamides; Z88.0 Allergy status to penicillin; Z88.8 Allergy status to other drugs, medicaments and biological substances; Z88.7 Allergy status to serum and vaccine; Z79.899 Other long term (current) drug therapy; Z90.49 Acquired absence of other specified parts of digestive tract; Z68.31 Body mass index [BMI] 31.0-31.9, adult
CPT/HCPCS: 36415; 80053; 85025; 99283; A9270-GY

== ENCOUNTER 2023-05-29 08:26 | Day surgery (SDC) | payer MEDICAID, MEDICARE ==
[2023-05-29] MEDS ORDERED: fentaNYL 100 MCG/2 ML SDV IV ONE (08:27)
[2023-05-29] MEDS ORDERED: Midazolam 1 MG/ML 2 ML SDV IV ONE (08:27)
[2023-05-29] MEDS ORDERED: Sodium Chloride 0.9% 10 ML Syringe FLUSH PRN (08:30)
[2023-05-29] MEDS: Lactated Ringers 1,000 ML IV PRN (09:32)
[2023-05-29 11:59] VITALS: BP 125/68; PULSE 60
== END 2023-05-29 11:23 | disposition home or self-care (01) ==
LOC: FB.SDS 08:26
PROVIDERS: ATTEND Ophthalmology
DX: E11.36 Type 2 diabetes mellitus with diabetic cataract (principal); Z79.899 Other long term (current) drug therapy; E66.01 Morbid (severe) obesity due to excess calories; E11.22 Type 2 diabetes mellitus with diabetic chronic kidney disease; N18.32 Chronic kidney disease, stage 3b; F31.81 Bipolar II disorder; F41.1 Generalized anxiety disorder; F32.A Depression, unspecified; J45.20 Mild intermittent asthma, uncomplicated; Z98.890 Other specified postprocedural states; Z87.891 Personal history of nicotine dependence
CPT/HCPCS: 82947; J2250; J3010; J7120; V2632

== ENCOUNTER 2023-06-12 08:27 | Day surgery (SDC) | payer MEDICARE, MEDICAID ==
[~2023-06-12 08:27] MED LIST: Sodium Chloride 0.9% 10 ML Syringe FLUSH PRN
[2023-06-12] MEDS ORDERED: Midazolam 1 MG/ML 2 ML SDV IV ONE (08:28)
[2023-06-12] MEDS ORDERED: fentaNYL 100 MCG/2 ML SDV IV ONE (08:28)
[2023-06-12] MEDS: Lactated Ringers 1,000 ML IV PRN (09:22)
[2023-06-12 10:12] VITALS: PULSE 64
[2023-06-12 10:56] VITALS: BP 130/65
== END 2023-06-12 10:50 | disposition home or self-care (01) ==
LOC: FB.SDS 08:27
PROVIDERS: ATTEND Ophthalmology
DX: H25.9 Unspecified age-related cataract (principal); H52.223 Regular astigmatism, bilateral; E28.2 Polycystic ovarian syndrome; E55.9 Vitamin D deficiency, unspecified; N18.32 Chronic kidney disease, stage 3b; F31.9 Bipolar disorder, unspecified; J45.20 Mild intermittent asthma, uncomplicated; G43.909 Migraine, unspecified, not intractable, without status migrainosus; E66.01 Morbid (severe) obesity due to excess calories; Z68.41 Body mass index [BMI] 40.0-44.9, adult; Z87.891 Personal history of nicotine dependence; Z79.899 Other long term (current) drug therapy; Z88.0 Allergy status to penicillin; Z91.018 Allergy to other foods; Z88.5 Allergy status to narcotic agent; Z88.8 Allergy status to other drugs, medicaments and biological substances; Z88.2 Allergy status to sulfonamides; Z88.6 Allergy status to analgesic agent
CPT/HCPCS: J2250; J3010; J7120; V2632

== ENCOUNTER 2023-07-30 20:28 | Emergency (ER) | payer MEDICARE, MEDICAID ==
[2023-07-30] MEDS ORDERED: Azithromycin 250 MG Tab PO ONE (20:29)
[2023-07-30 21:58] LABS: INFLUENZA A NAA NEGATIVE (NEGATIVE); INFLUENZA B NAA NEGATIVE (NEGATIVE); RESPIRATORY SYNCYTIAL VIR NAA NEGATIVE (NEGATIVE)
[2023-07-30 21:59] LABS: CORONAVIRUS COVID-19 NAA NEGATIVE (NEGATIVE)
[2023-07-30 23:27] VITALS: BP 124/67; PULSE 84
== END 2023-07-30 22:09 | disposition home or self-care (01) ==
LOC: FB.ED 20:28
DX: J02.0 Streptococcal pharyngitis (principal); I10 Essential (primary) hypertension; E78.00 Pure hypercholesterolemia, unspecified; E11.9 Type 2 diabetes mellitus without complications; E66.9 Obesity, unspecified; Z88.0 Allergy status to penicillin; Z88.6 Allergy status to analgesic agent; Z88.5 Allergy status to narcotic agent; Z88.7 Allergy status to serum and vaccine; Z88.1 Allergy status to other antibiotic agents; Z88.8 Allergy status to other drugs, medicaments and biological substances; Z88.2 Allergy status to sulfonamides; Z86.16 Personal history of COVID-19; Z79.51 Long term (current) use of inhaled steroids; Z79.899 Other long term (current) drug therapy; Z87.891 Personal history of nicotine dependence; Z68.31 Body mass index [BMI] 31.0-31.9, adult
CPT/HCPCS: 0241U; 87651; 99283; A9270

== ENCOUNTER 2023-11-04 21:16 | Emergency (ER) | payer MEDICARE, MEDICAID ==
[2023-11-04 22:08] LABS: BASE EXCESS VENOUS,POC -4 mmol/L (-2 - 3+); PCO2 VENOUS,POC 39 mmHg (41-51); PH VENOUS,POC 7.34 pH Units (7.32-7.43)
[2023-11-04] MEDS: LORazepam 2 MG/ML SDV IVPUSH ONE (22:08)
[2023-11-04] MEDS: Sodium Chloride 0.9% 10 ML Syringe FLUSH PRN (22:08)
[2023-11-04 22:21] LABS: BASOPHILS PERCENT AUTO 0.5 % (0.2-1.5); BLOOD UREA NITROGEN,BUN 17 mg/dL (7-18); BUN/CREATININE RATIO 13.1 (9-20); CALCIUM 8.5 mg/dL (8.6-10.2); CARBON DIOXIDE,CO2 24 mmol/L (21-32); CHLORIDE,CL 107 mmol/L (100-110); CREATININE 1.3 mg/dL (0.55-1.02); EOSINOPHILS ABSOLUTE AUTO 0.1 x10-3/uL (0.0-0.8); EOSINOPHILS PERCENT AUTO 1.7 % (0.6-8.1); EST CRCL DRUG DOSING (CG) 40.04 mL/min; ESTIMATED GFR 49 mL/min (>60); GLUCOSE RANDOM 83 mg/dL (80-116); HEMATOCRIT 39.1 % (34.2-48.2); HEMOGLOBIN 13.1 g/dL (11.4-15.5); LYMPHOCYTES PERCENT AUTO 42.8 % (18.4-52.1); MEAN CORPUSCULAR HEMOGLOBIN 29.9 pg (23.9-33.9); MEAN CORPUSCULAR HGB CONC 33.4 g/dL (31.9-34.8); MEAN CORPUSCULAR VOLUME 89.6 fL (76.7-100.5); MEAN PLATELET VOLUME 9.1 fL (7.1-12.4); MONOCYTES ABSOLUTE AUTO 0.5 x10-3/uL (0.3-1.0); MONOCYTES PERCENT AUTO 7.7 % (4.4-15.7); NEUTROPHILS ABSOLUTE AUTO 3.3 x10-3/uL (1.5-6.3); NEUTROPHILS PERCENT AUTO 47.3 % (30.8-76.2); PLATELET COUNT,PLT 239 x10(3)uL (151-488); POTASSIUM,K 3.7 mmol/L (3.5-5.3); RED BLOOD CELL COUNT 4.37 x10(6)uL (3.60-5.20); RED CELL DISTRIBUTION WIDTH 13.4 % (12.3-16.5); SODIUM,NA 142 mmol/L (135-145)
[2023-11-04 22:24] LABS: BILIRUBIN,URINE NEGATIVE (NEGATIVE); GLUCOSE,URINE NORMAL (NORMAL); KETONES,URINE NEGATIVE (NEGATIVE); LEUKOCYTE ESTERASE,URINE NEGATIVE (NEGATIVE); NITRITE,URINE NEGATIVE (NEGATIVE); OCCULT BLOOD,URINE NEGATIVE (NEGATIVE); PROTEIN,URINE NEGATIVE (NEGATIVE); UROBILINOGEN,URINE NORMAL (NEGATIVE)
[2023-11-04 22:26] LABS: A/G RATIO 0.9; ALANINE AMINOTRANSFERASE,ALT 17 U/L (12-36); ALBUMIN 3.3 g/dL (3.5-5.2); ALKALINE PHOSPHATASE 160 IU/L (56-112); ASPARTATE AMNIOTRANSFERASE,AST 14 IU/L (5-25); BILIRUBIN TOTAL 0.2 mg/dL (0.1-1.3); MAGNESIUM 1.9 mg/dL (1.8-2.5); PROTEIN TOTAL,TP 7.2 g/dL (6.0-8.0)
[2023-11-04 22:35] LABS: APPEARANCE,URINE CLEAR (CLEAR); COLOR,URINE YELLOW (YELLOW)
[2023-11-04 22:36] LABS: BACTERIA,URINE RARE (NS); RBC,URINE 0-5 (0-5); SQUAMOUS EPITHELIAL CELLS,UR OCCASIONAL (NS,R,O); WBC,URINE 0-5 (0-5)
[2023-11-04 22:38] LABS: AMPHETAMINES SCREEN, URINE NEGATIVE (NEGATIVE); BARBITURATE SCREEN,URINE NEGATIVE (NEGATIVE); BENZODIAZEPINES SCREEN,URINE NEGATIVE (NEGATIVE); BUPRENORPHINE SCREEN,URINE NEGATIVE (NEGATIVE); METHADONE SCREEN, URINE NEGATIVE (NEGATIVE); METHAMPHETAMINE SCREEN, URINE NEGATIVE (NEGATIVE); OXYCODONE SCREEN,URINE NEGATIVE (NEGATIVE); THC SCREEN,URINE NEGATIVE (NEGATIVE)
[2023-11-04 22:43] VITALS: PULSE 68
[2023-11-04 23:15] VITALS: BP 122/62
== END 2023-11-04 23:40 | disposition home or self-care (01) ==
LOC: FB.ED 21:16
DX: F43.25 Adjustment disorder with mixed disturbance of emotions and conduct (principal); F43.0 Acute stress reaction; R56.9 Unspecified convulsions; F17.200 Nicotine dependence, unspecified, uncomplicated; E78.00 Pure hypercholesterolemia, unspecified; J45.909 Unspecified asthma, uncomplicated; E11.9 Type 2 diabetes mellitus without complications; E66.9 Obesity, unspecified; Z86.16 Personal history of COVID-19; Z79.899 Other long term (current) drug therapy; I12.9 Hypertensive chronic kidney disease with stage 1 through stage 4 chronic kidney disease, or unspecified chronic kidney disease; N18.30 Chronic kidney disease, stage 3 unspecified; Z88.5 Allergy status to narcotic agent; Z88.6 Allergy status to analgesic agent; Z88.0 Allergy status to penicillin; Z88.2 Allergy status to sulfonamides; Z88.1 Allergy status to other antibiotic agents; Z88.7 Allergy status to serum and vaccine
CPT/HCPCS: 36415; 70450; 71045; 80053; 80307; 81001; 82947; 83735; 85025; 86140; 93005; 96374; 99285-25; J2060; J3490